=== PATIENT | male | born 1930 | race Caucasian/White ===

== ENCOUNTER 2017-08-28 13:07 | Inpatient (IN) | payer MEDICARE, OTHER ==
[2017-08-28] MEDS ORDERED: Acetaminophen 650 MG Suppository ONE ×2 (13:21→16:58)
[2017-08-28] MEDS ORDERED: SODIUM CHLORIDE IVPB SCH (13:45)
[2017-08-28] MEDS ORDERED: ADMIXTURE FEE IVPB SCH (13:45)
[2017-08-28] MEDS ORDERED: GENTAMICIN SULFATE IVPB SCH (13:45)
[2017-08-28] MEDS ORDERED: cefTRIAXone\\ROCEPHIN 2 GM in Sodium Chloride 0.9% 100 ML IVPB SCH (13:45)
--- NOTE | 2017-08-28 13:50 | RAD ---
CHEST 1 VIEW: HISTORY: Sepsis alert. COMPARISON: Radiograph 2004. FINDINGS: There are chronic parenchymal densities throughout the lungs. Heart size is enlarged. Dense calcifi cations of the aorta. There are calcifications of the right hemidiaphragm. No pneumothorax. No focal airspace consolidation. IMPRESSION: Likely chronic changes throughout the lungs. No focal airspace consolidation to suggest pneumonia. POS: [facility]
[2017-08-28 13:51] LABS: Hemoglobin 12.8 g/dL (14.0-18.0); Mean Corpuscular HGB CONC 32.5 g/dL (32.0-36.0); Mean Corpuscular Hemoglobin 32.3 pg (27.0-31.0); Mean Corpuscular Volume 99.6 fl (80.0-94.0); Mean Platelet Volume 6.5 fL (7.4-10.4); Platelet Count 177 thou/uL (130-400); RBC Distribution Width 13.7 % (11.5-14.5); Red Blood Cell (RBC) Count 3.95 mill/uL (4.70-6.10); White Blood Cell (WBC) Count 5.6 thou/uL (4.8-10.8)
[2017-08-28] MEDS ORDERED: Vancomycin HCl 1.5 GM in Sodium Chloride 0.9% 250 ML 300 ML IVPB SCH (14:00)
[2017-08-28 14:06] LABS: Bilirubin Moderate (Negative); Blood, Urine Large (Negative); Clarity CLOUDY (Clear); Glucose, Urine (Dipstick) Negative (Negative); Leukocyte Moderate (Negative); Nitrite Positive (Negative); Protein, Urine (Dipstick) > or equal to 300 mg/dL (Neg-Trace)
[2017-08-28 14:07] LABS: RBC/HPF GREATER THAN 50-TNTC HPF (0-3); Squamous Epithelial 0-3 HPF (0-3); WBC/HPF 0-3 HPF (0-3)
[2017-08-28 14:08] LABS: Bacteria/HPF Rare-Few HPF (None Seen); Hyaline Casts/LPF NONE SEEN LPF (0-3 Hyaline)
[2017-08-28 14:09] LABS: Band 2 % (5-11); Lymphocytes 3 % (21-51); MDiff Complete? YES; Monocytes 2 % (0-10); Neutrophil 93 % (42-75); PLT Morphology Comment Appears Adequate
[2017-08-28 14:12] LABS: ALT (SGPT) 35 U/L (8-55); AST (SGOT) 75 U/L (5-34); Albumin 3.2 g/dL (3.4-4.8); Alkaline Phosphatase 275 U/L (40-150); Anion Gap 15 mmol/L (10-20); BUN (Urea Nitrogen) 32 mg/dL (8.4-25.7); Bilirubin, Total 1.2 mg/dL (0.2-1.2); Calc. Creatinine Clearance 0 mL/min (70-130); Calcium 8.5 mg/dL (7.8-10.44); Carbon Dioxide 23 mmol/L (23-31); Chloride 102 mmol/L (98-107); Estimated GFR-MDRD 63; Globulin 3.1 g/dL (2.4-3.5); Glucose 98 mg/dL (83-110); Potassium 5.1 mmol/L (3.5-5.1); Protein, Total 6.3 g/dL (5.8-8.1); Sodium 135 mmol/L (136-145)
[2017-08-28 14:51] LABS: INR-International Normal Ratio 1.2; Prothrombin Time 15.7 SEC (12.0-14.7)
[2017-08-28] MEDS ORDERED: Norepinephrine 8 MG/0.9% NS 250 ML ONE (15:47)
[2017-08-28] MEDS ORDERED: Acetaminophen 650 MG Suppository PR PRN (16:10)
[2017-08-28] MEDS ORDERED: Acetaminophen 325 MG TAB PO PRN (16:10)
[2017-08-28] MEDS ORDERED: Sodium Chloride 0.9% 1,000 ML IV SCH (16:10)
[2017-08-28] MEDS ORDERED: CCU Electrolyte Replacement 1 EACH FS ONE (16:10)
--- NOTE | 2017-08-28 16:23 | RAD ---
CHEST ONE VIEW: History: Sepsis alert. Comparison: Radiograph same date. FINDINGS: A central venous catheter has been placed with tip projecting over the superior SVC. No pneumothorax. Remainder of the findings are similar. IMPRESSION: No complication after central venous catheter placement. POS: [facility]
[2017-08-28 16:29] LABS: CKMB 0.9 ng/mL (0-6.6)
[2017-08-28] MEDS ORDERED: Potassium Phosphate 15 MMOL in Sodium Chloride 0.9% 250 ML 250 ML IV PRN (16:39)
[2017-08-28] MEDS ORDERED: Potassium Chloride 40 MEQ in Sodium Chloride 0.9% 250 ML 250 ML IVPB PRN (16:39)
[2017-08-28] MEDS ORDERED: Potassium Chloride 20 MEQ TAB PO PRN (16:39)
[2017-08-28] MEDS ORDERED: Potassium Chloride 40 MEQ in Premix Bag 1 BAG IVPB PRN (16:39)
[2017-08-28] MEDS ORDERED: CCU ELECTROLYTE REPLACEMENT PROTOCOL FS PRN (16:39)
[2017-08-28] MEDS ORDERED: Magnesium Oxide 400 MG TAB PO PRN ×2 (16:39)
[2017-08-28] MEDS ORDERED: Potassium Phosphate 9 MMOL in Sodium Chloride 0.9% 100 ML IVPB PRN (16:39)
[2017-08-28] MEDS ORDERED: Magnesium 2 GM/NS 0.9% 100 ML 2 GM in Premix Bag 1 BAG IVPB PRN (16:39)
[2017-08-28] MEDS ORDERED: Potassium Phosphate 12 MMOL in Sodium Chloride 0.9% 250 ML 250 ML IV PRN (16:39)
[2017-08-28] MEDS ORDERED: Levofloxacin 750 mg/D5W 500 MG in Premix Bag 1 BAG IVPB SCH (17:00)
--- NOTE | 2017-08-28 18:22 | HP ---
REASON FOR ADMISSION: Septic shock, urinary tract infection, Wilkes trauma with hematuria. HISTORY OF PRESENT ILLNESS: Please note the patient was sent from [facility] for fever and unable to void. They tried to place Wilkes catheter at [facility] and were unable to. The patient was transferred here. He has blood in his Wilkes. The patient also had a temperature of 105 per ER physician. He has received nearly 3 liters of IV fluids and still has systolic pressures in the 80s. The patient is awake, but very lethargic. He does not recall why he is here in the hospital. Currently, the patient has some mild shortness of breath, but no chest pain or palpitation. He has chills and the patient also has a history of Parkinson's with tremors. PAST MEDICAL AND SURGICAL HISTORY: History of dementia, senior living resident who is essentially bed bound, occasionally goes in a wheelchair, hypertension, dyslipidemia, chronic atrial fibrillation, prior history of CABG, history of bladder cancer, depression, and osteoporosis. CURRENT MEDICATIONS: Per senior living records, the patient is on alendronate 35 mg p.o. once weekly on Tuesdays, alfuzosin extended release 10 mg p.o. daily for benign prostatic hyperplasia, amiodarone 200 mg p.o. daily, aspirin 81 mg daily, atorvastatin 40 mg daily, calcium with Vitamin D 1 tab once daily, carbidopa/levodopa 10/100 mg 1 tab p.o. 4 times daily, digoxin 0.125 mg p.o. daily, DuoNebs q.6 hourly p.r.n., ferrous sulfate 325 mg p.o. daily, folic acid 1 mg p.o. daily, Lasix 40 mg p.o. daily, levothyroxine 75 mcg p.o. daily, metoprolol extended release 50 mg half a tablet daily, Seroquel 12.5 mg p.o. q.a.m. and 50 mg p.o. at bedtime, spironolactone 25 mg p.o. daily, multivitamin 1 tab once daily. ALLERGIES: No known drug allergies. PERSONAL HISTORY: Does not abuse alcohol or drugs. He is currently a senior living resident at [facility]. FAMILY HISTORY: Cannot be obtained as patient is not cognitively intact at present and is lethargic. REVIEW OF SYSTEMS: Cannot be obtained as patient is septic and is lethargic. PHYSICAL EXAMINATION: GENERAL: The patient is an 86-year-old male who is currently in moderate distress from chills, rigors, and fever. VITAL SIGNS: Blood pressure 76/54 after 3 liters of IV fluid bolus, pulse 110 per minute, respiratory rate 36 per minute, temperature 105 degrees on arrival in the ER and currently 101, saturating 97% on 2 liters nasal cannula. NECK: Supple. No elevated JVD. HEENT: Extraocular muscles intact. Pupils reacting to light. Oral cavity, mucous membranes are dry. No exudates or congestion. CARDIOVASCULAR: S1, S2 heard. Irregular rhythm, tachycardic. RESPIRATORY: Air entry 1+ bilateral. Scattered rhonchi plus wheezes plus bilaterally. ABDOMEN: Soft. Bowel sounds heard. No tenderness, rigidity or guarding. EXTREMITIES: There is wasting of muscles of all 4 extremities, more so in the lower extremity. There is prior signs of vein harvesting done on right lower extremity. Peripheral pulses are 1+ in the upper extremities, barely palpable in the lower extremities. No obvious gangrene seen. CENTRAL NERVOUS SYSTEM: No gross focal deficits seen. The patient has severe tremors, which likely is worsened with rigors and fever at present with a temperature being 105, coming down to 101. PSYCHIATRIC: No obvious hallucinations or delusions at present. LABORATORY AND X-RAY FINDINGS: Chest x-ray done shows chronic changes in the lungs. No obvious infiltrates seen. EKG done shows atrial fibrillation at 106 beats per minute. There is Q-wave seen in lead II, III, AVF and V3, V4, V5. White count of 5.6, H&H 12 and 39, platelet count 177, MCV is 99 with 93% neutrophils, 2% bands. PT is 15.7, INR 1.2, serum bicarbonate is 23, BUN 32, creatinine 1.1. Lactic acid 3.5. Serum glucose 98, AST 75, ALT 35, alkaline phosphatase 275, total bilirubin 1.2, albumin is 3.2. UA shows signs of UTI plus hematuria. CLINICAL IMPRESSION AND PLAN: The patient will be admitted to ICU for septic shock with likely source being urinary tract. The patient has had history of recurrent UTIs in the past per son, whom I spoke to on the phone. Also, he is functionally very poor and is essentially wheelchair bound and has not ambulated in a long time per son. He will be on broad-spectrum antibiotics including vancomycin, cefepime and Levaquin for now. The patient has received 3 liters of bolus in the ER and is currently in mild to moderate respiratory distress with wheezing. In view of this, we will hold off on further boluses and keep him on normal saline at 80 mL per hour. If needed, he will be on Levophed for MAP of 50-60. We will consult Dr. Mark for Pulmonology and Dr. Samaniego for Urology. His overall prognosis is poor with multiple underlying medical issues and current septic shock. I have discussed code status with patient's son, Mr. Carmen Rosa (Jr. Rosa). The number to reach him is , alternate is [phone]. He wants everything done for now and if the patient were to worsen, he might change his mind if he thinks that his father is suffering. I have clearly indicated that there is every chance that patient might decompensate and might end up on the ventilator, and Mr. Rosa wants to go ahead if need be to aggressively pursue. If he ends up in a vegetative state he will go in for withdrawal of care. In view of this, we will admit him to ICU and get consultation with Dr. Mark for Pulmonology. We will also place him on digoxin IV for his atrial fibrillation, which might get worse with current septic shock and pressors. An echo with 2D Doppler for LV function will be obtained. His prior echo in 2006 and 2007 showed an EF of around 35% then. [facility]
[2017-08-28 18:37] VITALS: BMI 22.7
[2017-08-28] MEDS: Hydrocortisone Sod Succ/PF 100 mg/2 ml Vial IVP SCH (20:03)
[2017-08-28] MEDS: Carbidopa/Levodopa 10-100 mg Tablet PO SCH (20:49)
[2017-08-28] MEDS ORDERED: Cefepime 1 GM in Sodium Chloride 0.9% 100 ML IVPB SCH (21:00)
[2017-08-28] MEDS ORDERED: Vancomycin HCl 1 GM in Sodium Chloride 0.9% 250 ML 250 ML IVPB SCH (21:00)
[2017-08-28 21:11] LABS: Lactic Acid 6.6 mmol/L (0.5-2.2)
[2017-08-28] MEDS: Norepinephrine 8 MG/0.9% NS 250 ML IVPB SCH (22:16)
[2017-08-28] MEDS: Cefepime 1 GM, Admixture Fee 1 EACH in Sodium Chloride 0.9% 10 ML SLOW IVP SCH (23:15)
--- NOTE | 2017-08-28 23:30 | CON ---
DATE OF CONSULTATION: 08/28/2017 SERVICE: Pulmonary medicine. REASON FOR CONSULTATION: ICU patient. HISTORY OF PRESENT ILLNESS: Patient is an 86-year-old white male with past medical history significant for severe debility. He lives in a nursing facility. He has very poor quality of life based on what I am understanding. That being said, he presented to the hospital with marginal blood pressures. There is a concern for possible septic shock. Either way, he was hypotensive. He got 3 liters of fluid and broad-spectrum antibiotics in the emergency department. He was subsequently tucked in the ICU. Blood pressures were marginal, so he got 2 more liters of fluid. Ultimately, central line was initiated. He was started on pressors. CVP at that time was elevated. The patient cannot really provide much in the way of historical presentation. He currently denies any chest pain or shortness of breath. PAST MEDICAL HISTORY: 1. Dementia. 2. Debility with bedbound status. 3. Hypertension. 4. Dyslipidemia. 5. Permanent atrial fibrillation. 6. History of bladder cancer. 7. Major depressive disorder. 8. Osteoarthritis. PAST SURGICAL HISTORY: Coronary artery bypass graft. ALLERGIES: No known drug allergies. MEDICATIONS: List of his inpatient medications were reviewed. Multiple updates were made at this time. SOCIAL HISTORY: Negative for current alcohol, tobacco, or illicit drug use. He is currently a resident at [facility]. He is fully dependent on others for his activities of daily living. FAMILY HISTORY: Noncontributory. REVIEW OF SYSTEMS: This cannot be obtained as the patient has static encephalopathy. PHYSICAL EXAMINATION: VITAL SIGNS: Afebrile, pulse 90, blood pressure 90/48, respirations 26, saturation 100% on 2 liters nasal cannula. HEENT: Normocephalic, atraumatic. Sclerae white, conjunctivae pink. Oral and nasal mucosa is moist and without lesions. He demonstrates cachexia. LUNGS: Decent air entry. There is no crackles present. No wheezing or rhonchi appreciated. There is no prolonged expiratory phase. HEART: Normal rate. Regular. ABDOMEN: Soft. Scaphoid. Bowel sounds are present. There is no rebound. MUSCULOSKELETAL: No cyanosis or clubbing. There is skin tenting throughout. GENITOURINARY: Wilkes catheter in place with hematuria. NEUROLOGIC: Grossly nonfocal. He is moving all 4 extremities. He prefers to lye in his right side, curled up in position. LABORATORY DATA: WBC 5.6, hemoglobin 12.8, platelets 177,000. Neutrophil count is 93%. INR 1.2. Lactate is up trending to 6.1. Basic metabolic profile , and liver function studies are mostly unremarkable except for an AST of 75. Albumin 3.2. Cortisol level is adequate at 40.5. CK 42. Red blood cells are greater than 50. White blood cells in the urine are essentially unremarkable, though nitrites are positive, as his leukocyte esterase. IMAGING: Chest x-ray demonstrates left IJ central venous catheter terminates and probably a decent position. It is a little obscured by the overlying AICD leads that are in place. Previous sternotomy is evident. There is no acute consolidating changes that are identified. He has a rim of calcification over the dome of the right diaphragm, consistent with previous asbestos exposure. He also has pleural plaques are calcified in other locations. ASSESSMENT: 1. Septic shock, suspected. 2. Metabolic encephalopathy. 3. Urinary tract infection, suspected. 4. Heart disease, baseline unknown. PLAN: I will discontinue IV fluids and IV fluid boluses. His CVP is currently 17 and he does not require any additional fluids. We will initiate pressors. I will start him on stress dose of steroids. Empiric antibiotics will be continued. I will get an echocardiogram, so we can assess his left ventricular function. The patient is critically ill and there is a possibility that if things get worse, he will require intubation. I will get an arterial blood gas , so that we can identify his acid-base status. 70 minutes have been devoted to this patient in various activities. I personally reviewed all imaging studies and laboratory data noted within this document. For fifty percent of this time, I was interacting with the patient at the bedside or coordinating care with the care team. For the remainder of the time I was immediately available to the patient in the hospital unit. [facility]
--- NOTE | 2017-08-29 01:31 | CON ---
DATE OF CONSULTATION: 08/28/2017 REASON FOR CONSULTATION: UTI, Wilkes trauma with urosepsis. HISTORY OF PRESENT ILLNESS: The patient is an 86-year-old male, who was previously in a skilled nursing and was unable to urinte and an attempted catheter placement was either not able or not easy and he was transferred because he had a fever up to 105 by report. I was initially consulted for what was simply hematuria and Wilkes trauma only. I was able to get some history from the patient. It is difficult for him to communicate freely, but he was able to communicate adequately that he was treated at [facility] previously for bladder cancer, question of prostate cancer, and he has had multiple procedures on either the bladder and/or the prostate. With this information, I was able to look up that he had at least 2 TURBTs, the last of which was in 11/2015. I am not sure if he has had appropriate followup since then. He does report prior urinary retention at least 3 times, for which he has had to have a catheter before. He did not report that he had any pain or fullness to void at this time. PAST MEDICAL HISTORY: Significant for Parkinson with dementia and he is basically bedbound, hypertension, high cholesterol, atrial fibrillation, coronary artery disease, the above-mentioned bladder cancer, hypothyroid, osteoporosis, prior ventricular tachycardia. PAST SURGICAL HISTORY: Includes ORIF of the femur on the left in 1990, cardioversion 05/2015 with a defibrillator placement that same time along with catheterization, prior CABG x3 in 2007, tonsils, appendix, gallbladder. MEDICATIONS: His medications include alendronate, alfuzosin, amiodarone, aspirin 81 mg, atorvastatin, calcium and vitamin D, carbidopa levodopa, digoxin , nebulizers, metoprolol, Lasix, levothyroxine, Seroquel, spironolactone, other supplements. SOCIAL HISTORY: He has a [id number] history, having quit in 1985. He also used to snuff and chew tobacco, and he did quit that in 2016. He does not drink alcohol. REVIEW OF SYSTEMS: Revealed shortness of breath and chills, but no chest pain or palpitations. He has a resting tremor in the right hand. He denies ever having a colonoscopy. I am not sure if he has had screening for prostate cancer with PSAs. FAMILY HISTORY: Significant for mom dying at 80 and dad dying at 93. ALLERGIES: None. PHYSICAL EXAMINATION: GENERAL: He is alert and responds appropriately. He does have labored breathing with no dentition. VITAL SIGNS: Blood pressure with systolic in the 80s, although at the end of manipulation, it was up to 124/63 with the heart rates in the 80s-90s, saturating 100% on room air with a respiratory rate near 30. His pupils did not react normally and were quite small. HEART: Regular rate, but irregular rhythm. LUNGS: Clear to auscultation, but with poor inspiratory effort. ABDOMEN: Soft, nondistended. No palpable bladder. GENITOURINARY: His testes were descended bilaterally. His phallus was uncircumcised with the foreskin back, so I have reduced this. The Wilkes catheter did not appear to be in proper position based on how much it was hanging out. There was clear urine in the tubing, though by report, 200 have been already out since the nurse had him; however, I was unable to push this in even after deflating the balloon, so I removed it and there was a significant amount of blood at that time. I attempted to place an 18 coude, but was unsuccessful. So then, I had to scope the catheter in. He had no significant lower extremity edema. He was prepped and draped in as much sterile fashion as feasible in the bed, and then an 18-[place]er flexible cystoscope advanced to the prostate where trauma and inflamed tissue was noted where the balloon had been blown up. After some manipulation, I was able to find the proper pass and placed a wire into that area and follow the wire into his bladder, where there was not any significant clot noted. Leaving the wire in place, the scope was removed and then an 18- [place]er Wilkes catheter was placed over the wire without difficulty for initially clear urine that ended up becoming bloody, and drained approximately 80mL. At that point, I secured this appropriately. LABORATORY DATA: Normal CBC, slightly elevated PT, but an INR of 1.2 and PTT of 32. BUN and creatinine went to 32 and 1.10 with the prior at 1.23. Lactic acid was rising from 3.5 to 6.1. Troponin was elevated at 0.130. A urinalysis on this admission showed 0-3 wbc's, too numerous to count rbc's, and rare bacteria with 0-3 squamous. Urinalysis from 2 days prior (I am not sure how or when that was obtained) showed too numerous to count wbc's, too numerous to count rbc's, rare bacteria, and 0-3 squamous cells with the culture of gram- negative rusty is still pending. There is no upper tract imaging to review. ASSESSMENT AND PLAN: We have an 86-year-old gentleman with urinary retention and misplaced Wilkes with the Wilkes now in place draining adequately and the urine that was relatively unremarkable. So, presumably he was already on antibiotics from the prior culture that is still pending. He needs upper tract imaging to rule out stones or other obstruction, and I have ordered a plain CT scan at this time. He has already been placed on IV antibiotics to include cefepime and Levaquin. I would continue these until the culture from 2017 speciates and shows sensitivities. Continue the Wilkes catheter at this time. I would continue alfuzosin and add finasteride to help diminish his prostatic bleeding. I cannot tell that he saw either Dr. Barrios or Dr. Kaufman from [facility] previously, but if so, then they will follow up on him, otherwise I will do so. [facility] HOSPITALClement
[2017-08-29] MEDS: Hydrocortisone Sod Succ/PF 100 mg/2 ml Vial IVP SCH ×4 (01:54→20:56)
[2017-08-29] MEDS: Norepinephrine 8 MG/0.9% NS 250 ML IVPB SCH ×3 (01:54→16:22)
[2017-08-29 05:42] LABS: Anion Gap 18 mmol/L (10-20); BUN (Urea Nitrogen) 35 mg/dL (8.4-25.7); Calc. Creatinine Clearance 38 mL/min (70-130); Calcium 7.4 mg/dL (7.8-10.44); Carbon Dioxide 15 mmol/L (23-31); Chloride 109 mmol/L (98-107); Estimated GFR-MDRD 53; Glucose 104 mg/dL (83-110); Potassium 3.9 mmol/L (3.5-5.1); Sodium 138 mmol/L (136-145)
[2017-08-29 05:46] LABS: Hemoglobin 11.9 g/dL (14.0-18.0); Mean Corpuscular HGB CONC 30.9 g/dL (32.0-36.0); Mean Corpuscular Hemoglobin 32.2 pg (27.0-31.0); Platelet Count 202 thou/uL (130-400); RBC Distribution Width 14.1 % (11.5-14.5); White Blood Cell (WBC) Count 47.9 thou/uL (4.8-10.8)
[2017-08-29 05:47] LABS: Lactic Acid 7.2 mmol/L (0.5-2.2)
[2017-08-29 05:55] LABS: Band 31 % (5-11); Burr Cells SLIGHT = 2-5 cells (100X) (0-1/hpf); Dohle Bodies SLIGHT; MDiff Complete? YES; Metamyelocyte 4 % (0-0); Monocytes 1 % (0-10); Myelocyte 1 % (0-0); Neutrophil 63 % (42-75); PLT Morphology Comment Appears Adequate
[2017-08-29 06:50] LABS: Reflex for Review?? YES
[2017-08-29] MEDS: Carbidopa/Levodopa 10-100 mg Tablet PO SCH ×4 (08:23→20:56)
--- NOTE | 2017-08-29 08:32 | CT ---
PRELIMINARY REPORT/[facility]/EMERGENTY AFTER-HOURS PROCEDURE EXAM: CT Abdomen and Pelvis Without Intravenous Contrast EXAM DATE/TIME: Exam ordered 08/29/2017 12:43 AM CLINICAL HISTORY: 86 years old, male; Signs and symptoms; Other: Blood in urine; Patient HX: No previous exams; R/O obs tuction; Pt. Pulled out lechuga in intermediate; Urosepsis; Blood in urine since arrival. TECHNIQUE: Axial computed tomography images of the abdomen and pelvis without intravenous contrast. Coronal refo rmatted images were created and reviewed. COMPARISON: No relevant prior studies available. FINDINGS: Lung bases: There is calcification of the bilateral diaphragms. Pleural space: There are trace bilateral pleural effusions. ABDOMEN: Liver: Normal. Gallbladder and bile ducts: There has been a cholecystectomy. No ductal dilation. Pancreas: The pancreas appears normal. No ductal dilation. Spleen: The spleen is normal. Adrenals: The adrenal glands are normal. Kidneys and ureters: There is mild LEFT renal caliectasis without evidence of obstruction. Urine appe ars hyperdense possibly representing hematuria. The right kidney is normal. Stomach and bowel: The stomach is normal. The duodenum is unremarkable. No obstruction. No mucosal th ickening. Appendix: No appendix is specifically identified. There is no evidence of fluid collections or inflam matory stranding in the right lower quadrant. PELVIS: Bladder: The bladder is decompressed by a Lechuga catheter but is otherwise normal. There is a small am ount of intraluminal air consistent with instrumentation. No stones. Reproductive: Unremarkable as visualized. ABDOMEN and PELVIS: Intraperitoneal space: Normal. No free air. No significant fluid collection. Bones/joints: There are sternal wires consistent with previous sternotomy incision. The spine demonst rates moderate degenerative changes at multiple levels. Patient is post LEFT hip arthroplasty No acut e fracture. No dislocation. Soft tissues: Normal. Vasculature: There is severe atherosclerotic calcification of the coronary arteries. The vasculature demonstrates diffuse moderate atherosclerotic calcification. No abdominal aortic aneurysm. Lymph nodes: Normal. No enlarged lymph nodes. Tubes, lines and devices: A pacemaker device is present, and its leads are in appropriate position. IMPRESSION: There is mild LEFT renal caliectasis without evidence of obstruction. Urine appears hyperdense possib ly representing hematuria. Thank you for allowing us to participate in the care of your patient. Dictated and Authenticated by: Jacinto Pierre MD 08/29/2017 1:44 AM Central Time ([place] & [place]) FINAL REPORT CT ABDOMEN AND PELVIS WITHOUT CONTRAST: Multiple axial tomograms obtained through the abdomen and pelvis without Iv enhancement. There is a history of hematuria. Images through the lung bases reveal small right pleural effusion and possibly tiny left effusion. Liver, spleen, and pancreas are unremarkable. There is mild left hydronephrosis. No ureteral calculus identified. Bladder is contracted with a Fo hector catheter in place. The urine filling the left collecting systems is hyperdense as noted on the p reliminary report. Right kidney and right urinary tract appear unremarkable. Bowel loops unremarkable. The aorta is densely calcified. Mild left hydronephrosis. Etiology is not apparent on this study. I am in agreement with the prelim inary report. POS: [facility]
[2017-08-29] MEDS: Cefepime 1 GM, Admixture Fee 1 EACH in Sodium Chloride 0.9% 10 ML SLOW IVP SCH ×2 (08:54→20:56)
[2017-08-29] MEDS: Enoxaparin Sodium 40 MG/0.4 ML SYRINGE SC SCH (08:54)
[2017-08-29] MEDS ORDERED: Digoxin 0.5 MG/2 ML AMP SLOW IVP SCH (09:00)
[2017-08-29 09:24] LABS: Actual Bicarbonate (HCO3a) 12.5 mEq/L (22-26); CO2 Tension 25.2 mmHg (35.0-45.0); Hematocrit-ABG 37.8 % (42.0-52.0); Hemoglobin (Hb) 11.5 g/dL (14.0-18.0); O2 Tension (PaO2) 88.9 mmHg (80.0-100.0); pH, Arterial 7.32 (7.35-7.45)
[2017-08-29 09:25] LABS: Calcium, Ionized 1.1 mmol/L (1.12-1.30); Puncture Site RRA
--- NOTE | 2017-08-29 09:52 | PRG ---
DATE OF SERVICE: 08/29/2017 SERVICE: Pulmonary Medicine INTERVAL HISTORY: Today, the patient looks a little less toxic. His blood pressures are up nicer. His Levophed is down just a touch to 25 mcg. Otherwise, he is returning to his usual state of health . He denies any abdominal pain, or chest pain. PHYSICAL EXAMINATION: VITAL SIGNS: Afebrile, pulse 75, blood pressure is 123/53, respirations 30, saturation 100% on room air. GENERAL: The patient is awake, alert, in no apparent distress. LUNGS: Decent air entry. There are dependent crackles present. HEART: Normal rate, regular. ABDOMEN: Soft. It is tender to palpation in the hypogastric region, but there is no rebound or guar ding present. MUSCULOSKELETAL: No cyanosis or clubbing. There is trace pitting in the bilateral lower extremities . NEUROLOGIC: Grossly nonfocal. LABORATORY DATA: WBC 47.9, hemoglobin 11.9, platelets 202,000. Neutrophil count is 63%, but the ban d count has increased to 31%. INR 1.2. PH 7.32, pCO2 25, pO2 89. Basic metabolic profile is unrema rkable. Lactate continues to gently trend upward to 7.2. TSH 1.2. Urinalysis is essentially unrema rkable except for hematuria. That being said, it is growing E. coli at this point. Blood cultures x 2 remain unremarkable. IMAGING: CT of the abdomen and pelvis demonstrates no evidence of a stone. Mild left hydronephrosis is present. Bladder is contracted with a Wilkes in good position. Right kidney and right urinary tr act appear unremarkable. Mild left hydronephrosis is also evident without stone. ASSESSMENT: 1. Septic shock. 2. Urinary tract infection secondary to Escherichia coli. 3. Metabolic encephalopathy, clearing. 4. Heart disease, baseline unknown. PLAN: The IV fluids will stay off. Currently CVP is okay. We wean down Levophed as tolerated. We are going to continue our empiric antibiotics while we await culture results. I will repeat a lactat e tomorrow morning. Currently, we are meeting our goals of resuscitation. The patient is compensate d well for his degree of acidosis based on the ABG this morning. As such, we would do nothing but co ntinue supportive care. I will allow him to have clear liquids. We are not to advance his diet unti l he more robustly clears his acidosis.
[2017-08-29] MEDS ORDERED: Vancomycin HCl 1 GM in Premix Bag 1 BAG IVPB SCH ×2 (12:00→14:00)
--- NOTE | 2017-08-29 12:33 | PQF ---
DATE: 08-29-17 ATTN: DR. DAVID MARQUEZ Please exercise your independent, professional judgment in responding to the clarification form. Clinical indicators are provided on the bottom of this form for your review Please check appropriate box(s): [ ] UTI please specify if due to or related to (as applicable): [ ] Indwelling catheter [ ] Unable to determine etiology [ ] UTI not related to catheter [ x] Other diagnosis _e.coli bacteremia, sepsis, uti due to e.coli [ ] Unable to determine In addition, please specify: Present on Admission (POA): [ x ] Yes [ ] No [ ] Unable to determine For continuity of documentation, please document condition throughout progress notes and discharge summary. Thank You. CLINICAL INDICATORS - SIGNS / SYMPTOMS / LABS ER DOCUMENTATION: PRESENTS FOR EVALUATION OF JONES CATHETER, PULLED OUT ER DOCUMENTATION: PT CAME IN WITH 18 FR JONES FROM SENDING FACILITY, FILLED WITH GROSS BLOOD IN URINE. URINE SAMPLE AND URINE CX WILL BE COLLECTED FROM THIS JONES TUBING. ER DIAGNOSIS: SEPSIS, A FIB-RVR, HYPOTENSION,TACHYCARDIA, UTI H&P: UA SHOWS SIGNS OF UTI PLUS HEMATURIA, ADMITTED TO ICU FOR SEPTIC SHOCK WITH LIKELY SOURCE BEING URINARY TRACT. TEMP: (ER) 105.4 ( RECTAL), 103.5 ( RECTAL), 101.5 ( RECTAL), 102.0 ( RECTAL), RISK FACTORS: H&P: PT HAS HAD HX OF RECURRENT UTI'S IN THE PAST PER SON, PT FROM [place] ER DOCUMENTATION: PRESENTS FOR EVALUATION OF JONES CATHETER, PULLED OUT TREATMENT: (MAR) FAN BUTLER CONSULT NOTE : JONES CATHETER DID NOT APPEAR TO BE IN PROPER POSITION BASED ON HOW MUCH IT WAS HANGING OUT. 18 JONES FLEXIBLE CYSTOSCOPE ADVANCED TO THE PROSTATE WHERE TRAUMA AND INFLAMED TISSUE WAS NOTED WHERE THE BALLOON HAD BEEN BLOWN UP. (This form is maintained as a part of the permanent medical record) 2015 [employer] All Rights Reserved [email or web address] Office: [phone] AUDREY
[2017-08-29] MEDS: Vasopressin 40 UNIT, Admixture Fee 1 EACH in Sodium Chloride 0.9% 100 ML IV PRN (12:44)
--- NOTE | 2017-08-29 13:34 | PDOC.PN ---
- Subjective Encounter Start Date: 08/29/17 Encounter Start Time: 12:00 Subjective: awake, not oriented -: not in distress, appears better than yesterday, still has tremors -: no chills or fever now - Objective Resuscitation Status: Resuscitation Status FULL:Full Resuscitation MAR Reviewed: Yes Vital Signs & Weight: Vital Signs (12 hours) Temp Pulse 08/29/17 08:51 73 08/29/17 07:35 97.0 F L 08/29/17 04:00 98.2 F Most Recent Monitor Data Heart Rate from ECG 78 NIBP 106/39 NIBP BP-Mean 76 Respiration from ECG 32 SpO2 95 I&O: 08/28/17 08/29/17 08/30/17 06:59 06:59 06:59 Intake Total 5973 120 Output Total 630 200 Balance 5343 -80 Result Diagrams: 08/29/17 04:30 08/29/17 04:30 Phys Exam - Physical Examination HEENT: PERRLA, sclera anicteric Neck: no JVD, supple Respiratory: no wheezing, no rales Cardiovascular: RRR, no significant murmur Gastrointestinal: soft, non-tender, no distention, positive bowel sounds Musculoskeletal: no edema, pulses present Neurological: non-focal, moves all 4 limbs tremors++ Dx/Plan (1) E coli bacteremia Code(s): R78.81 - BACTEREMIA Status: Acute (2) Septic shock Code(s): A41.9 - SEPSIS, UNSPECIFIED ORGANISM; R65.21 - SEVERE SEPSIS WITH SEPTIC SHOCK Status: Acute (3) UTI (urinary tract infection) Status: Acute Qualifiers: Urinary tract infection type: acute cystitis Hematuria presence: with hematuria Qualified Code(s): N30.01 - Acute cystitis with hematuria (4) Parkinson disease Code(s): G20 - PARKINSON'S DISEASE Status: Chronic (5) RACHELLE (acute kidney injury) Code(s): N17.9 - ACUTE KIDNEY FAILURE, UNSPECIFIED Status: Acute (6) Metabolic acidosis Code(s): E87.2 - ACIDOSIS Status: Acute (7) Hematuria Code(s): R31.9 - HEMATURIA, UNSPECIFIED Status: Acute Qualifiers: Hematuria type: gross Qualified Code(s): R31.0 - Gross hematuria (8) Dementia Code(s): F03.90 - UNSPECIFIED DEMENTIA WITHOUT BEHAVIORAL DISTURBANCE Status: Chronic Qualifiers: Dementia type: unspecified type (9) H/O prostate cancer Code(s): Z85.46 - PERSONAL HISTORY OF MALIGNANT NEOPLASM OF PROSTATE Status: Chronic - Plan is on cefepime and levaquin -: await full culture results, prognosis guarded, family is aware -: liq diet, renal function holding up -: may rapidly taper and dc steroids if ok with pulm -: is on both levophed and vasopressin, levophed is getting tapered * . Review of Systems - Medications/Allergies Allergies/Adverse Reactions: Allergies Allergy/AdvReac Type Severity Reaction Status Date / Time No Known Allergies Allergy Unverified 08/28/17 20:35 Medications: Current Medications Acetaminophen (Tylenol) 650 mg PO Q4H PRN PRN Reason: Headache/Fever or Pain Acetaminophen (Tylenol) 650 mg SD Q4H PRN PRN Reason: Headache/Fever or Pain Carbidopa/Levodopa (Sinemet 10/100) 1 tab PO QID [facility] Last Admin: 08/29/17 13:27 Dose: Not Given Digoxin (Lanoxin) 0.25 mg SLOW IVP DAILY [facility] Last Admin: 08/29/17 08:51 Dose: 0.25 mg Enoxaparin Sodium (Lovenox) 40 mg SC 0900 [facility] Last Admin: 08/29/17 08:54 Dose: Not Given Hydrocortisone Sodium Succinate (Solu-Cortef) 50 mg IVP 0200,0800,1400,2000 [facility] Last Admin: 08/29/17 08:14 Dose: 50 mg Norepinephrine Bitartrate (Levophed) 250 mls @ 0 mls/hr IVPB INF JAGJTI; Titrate PRN Reason: Protocol Last Admin: 08/29/17 06:41 Dose: 250 mls Potassium Chloride 40 meq/ (Sodium Chloride) 270 mls @ 135 mls/hr IVPB ASDIR PRN PRN Reason: FOR SERUM K+ 2.5 - 3.5 Potassium Chloride 40 meq/ (Device) 100 mls @ 50 mls/hr IVPB ASDIR PRN PRN Reason: FOR SERUM K+ 2.5 - 3.5 Magnesium Sulfate 1 gm/ Sodium (Chloride) 102 mls @ 102 mls/hr IV PRN PRN PRN Reason: MAG LEVEL 1.4 - 2.0 Magnesium Sulfate 2 gm/ Device 100 mls @ 100 mls/hr IVPB ASDIR PRN PRN Reason: MAGNESIUM < 1.4 Potassium Phosphate 9 mmol/ (Sodium Chloride) 103 mls @ 25.75 mls/hr IVPB ASDIR PRN PRN Reason: Phosphate 1.0-1.8 Potassium Phosphate 12 mmol/ (Sodium Chloride) 254 mls @ 63.5 mls/hr IV ASDIR PRN PRN Reason: Serum phosphate 0.5-0.9 Potassium Phosphate 15 mmol/ (Sodium Chloride) 255 mls @ 63.75 mls/hr IV ASDIR PRN PRN Reason: Serum Phos < 0.5 Cefepime HCl 1 gm/Miscellaneous Medication 1 each/ Sodium Chloride 10 mls @ 120 mls/hr SLOW IVP BID [facility] Last Admin: 08/29/17 08:54 Dose: 10 mls Levofloxacin 500 mg/ Device 100 mls @ 100 mls/hr IVPB 2000 [facility] Last Admin: 08/28/17 20:04 Dose: 100 mls Vasopressin 40 unit/Miscellaneous Medication 1 each/ Sodium Chloride 102 mls @ 0 mls/hr IV INF PRN; Protocol; As Directed PRN Reason: TO KEEP MAP > 65 Last Admin: 08/29/17 12:44 Dose: 102 mls Magnesium Oxide (Magnesium Oxide) 400 mg PO BIDPRN PRN PRN Reason: FOR SERUM MAG 1.4 - 2.0 Magnesium Oxide (Magnesium Oxide) 800 mg PO PRN PRN PRN Reason: FOR SERUM MAG < 1.4 Miscellaneous Medication (Phos-Nak) 1 pkt PO TIDPRN PRN PRN Reason: FOR PHOS LEVEL 1.0 - 1.8 Miscellaneous Medication (Phos-Nak) 2 pkt PO TIDPRN PRN PRN Reason: FOR PHOS LEVEL 0.5 - 1.0 Ccu Electrolyte (Replacement Protocol) 0 each FS PRN PRN PRN Reason: FOR ELECTROLYTE REPLACEMENT Potassium Chloride (K-Dur) 40 meq PO ASDIR PRN PRN Reason: FOR SERUM K+ 2.5 - 3.5 Potassium Chloride (Klor-Con) 40 meq PER TUBE ASDIR PRN PRN Reason: FOR SERUM K+ 2.5-3.5
[2017-08-30] MEDS: Hydrocortisone Sod Succ/PF 100 mg/2 ml Vial IVP SCH ×2 (01:54→07:57)
[2017-08-30] MEDS: Vasopressin 40 UNIT, Admixture Fee 1 EACH in Sodium Chloride 0.9% 100 ML IV PRN (03:05)
[2017-08-30 04:51] LABS: Anion Gap 11 mmol/L (10-20); BUN (Urea Nitrogen) 46 mg/dL (8.4-25.7); Calc. Creatinine Clearance 43 mL/min (70-130); Calcium 7.6 mg/dL (7.8-10.44); Carbon Dioxide 21 mmol/L (23-31); Chloride 112 mmol/L (98-107); Estimated GFR-MDRD 61; Glucose 122 mg/dL (83-110); Magnesium 1.7 mg/dL (1.6-2.6); Potassium 4.8 mmol/L (3.5-5.1); Sodium 139 mmol/L (136-145)
[2017-08-30 05:30] LABS: Band 22 % (5-11); Hemoglobin 10.6 g/dL (14.0-18.0); Lymphocytes 2 % (21-51); MDiff Complete? YES; Mean Corpuscular HGB CONC 31.9 g/dL (32.0-36.0); Monocytes 6 % (0-10); Neutrophil 70 % (42-75); PLT Morphology Comment Appears Decreased; Platelet Count 107 thou/uL (130-400); White Blood Cell (WBC) Count 20.1 thou/uL (4.8-10.8)
--- NOTE | 2017-08-30 08:43 | PRG ---
DATE OF SERVICE: 08/30/2017 SERVICE: Pulmonary Medicine INTERVAL HISTORY: The patient is doing okay from a respiratory standpoint. He has been weaned off o f pressors. His blood pressure is more stable. He is much more alert this morning. He is not toxic appearing. PHYSICAL EXAMINATION: VITAL SIGNS: Afebrile, pulse 84, blood pressure 106/59, respirations 26, saturation 100% on room air . GENERAL: The patient is awake, alert, in no apparent distress. LUNGS: Excellent air entry. Dependent crackles are present. HEART: Normal rate, regular. ABDOMEN: Soft, nontender, nondistended. Bowel sounds are positive. MUSCULOSKELETAL: No cyanosis or clubbing. There is no pitting in the bilateral lower extremities. NEUROLOGIC: Grossly nonfocal. LABORATORY DATA: WBC 20.1 and down trending. Hemoglobin 10.6 and stable, platelets 107,000. Band c ount is 22. INR 1.2. Creatinine 1.14 and down trending, glucose 122. Anion gap has resolved at 11, and bicarbonate is improving to 21. Basic metabolic profile is otherwise unremarkable. E. coli is growing in the urine in 2 blood cultures. Sensitivities currently pending. IMAGING: Echocardiogram demonstrates 50-55% ejection fraction. Left atrium is mildly dilated. ASSESSMENT: 1. Septic shock, resolved. 2. Urinary tract infection secondary to Escherichia coli. 3. Metabolic encephalopathy, resolved to baseline. DISCUSSION AND PLAN: We will continue our empiric antibiotics, but tailor our therapy to our sensiti vities. At this point, the patient's blood pressure is good. He is clearing his end-organ damage. As such, he can be transitioned to the medical unit. Pulmonary will continue to follow while he mario ins in house. I will start up very slow half normal saline moving forward. We will advance his diet .
[2017-08-30] MEDS ORDERED: Furosemide 20 MG TAB PO SCH (08:45)
[2017-08-30] MEDS: Cefepime 1 GM, Admixture Fee 1 EACH in Sodium Chloride 0.9% 10 ML SLOW IVP SCH ×2 (09:20→21:44)
[2017-08-30] MEDS: Enoxaparin Sodium 40 MG/0.4 ML SYRINGE SC SCH (09:20)
[2017-08-30] MEDS: Digoxin 0.25 MG TAB PO SCH (09:22)
[2017-08-30] MEDS: Carbidopa/Levodopa 10-100 mg Tablet PO SCH ×4 (09:22→21:44)
[2017-08-30] MEDS: Finasteride 5 MG TAB PO SCH (09:23)
--- NOTE | 2017-08-30 12:56 | PDOC.PN ---
- Subjective Encounter Start Date: 08/30/17 Encounter Start Time: 12:30 Subjective: is awake, not oriented -: not in distress - Objective Resuscitation Status: Resuscitation Status FULL:Full Resuscitation MAR Reviewed: Yes Vital Signs & Weight: Vital Signs (12 hours) Temp Pulse Resp Pulse Ox 08/30/17 09:22 77 08/30/17 08:00 98.4 F 74 23 H 100 08/30/17 04:00 97.7 F Weight Admit Weight 145 lb 4.554 oz Weight 145 lb 4.554 oz Most Recent Monitor Data Heart Rate from ECG 70 NIBP 122/57 NIBP BP-Mean 74 Respiration from ECG 29 SpO2 100 I&O: 08/29/17 08/30/17 08/31/17 06:59 06:59 06:59 Intake Total 5973 1664 180 Output Total 630 931 75 Balance 5343 733 105 Result Diagrams: 08/30/17 04:00 08/30/17 04:00 Phys Exam - Physical Examination HEENT: PERRLA, sclera anicteric Neck: no JVD, supple Respiratory: no wheezing, no rales Cardiovascular: RRR, no significant murmur Gastrointestinal: soft, non-tender, positive bowel sounds Musculoskeletal: no edema, pulses present Neurological: non-focal, moves all 4 limbs Dx/Plan (1) E coli bacteremia Code(s): R78.81 - BACTEREMIA Status: Acute (2) Septic shock Code(s): A41.9 - SEPSIS, UNSPECIFIED ORGANISM; R65.21 - SEVERE SEPSIS WITH SEPTIC SHOCK Status: Resolved (3) UTI (urinary tract infection) Status: Acute Qualifiers: Urinary tract infection type: acute cystitis Hematuria presence: with hematuria Qualified Code(s): N30.01 - Acute cystitis with hematuria (4) Parkinson disease Code(s): G20 - PARKINSON'S DISEASE Status: Chronic (5) RACHELLE (acute kidney injury) Code(s): N17.9 - ACUTE KIDNEY FAILURE, UNSPECIFIED Status: Acute (6) Metabolic acidosis Code(s): E87.2 - ACIDOSIS Status: Acute Comment: resolving (7) Hematuria Code(s): R31.9 - HEMATURIA, UNSPECIFIED Status: Acute Qualifiers: Hematuria type: gross Qualified Code(s): R31.0 - Gross hematuria Comment: resolving (8) Dementia Code(s): F03.90 - UNSPECIFIED DEMENTIA WITHOUT BEHAVIORAL DISTURBANCE Status: Chronic Qualifiers: Dementia type: unspecified type (9) H/O prostate cancer Code(s): Z85.46 - PERSONAL HISTORY OF MALIGNANT NEOPLASM OF PROSTATE Status: Chronic - Plan is on cefepime, levaquin -: off steroids (stress dose due to severe hypotension and septic shock) -: is on alfuzosin and finasteride -: continue dig for afib -: await culture results, PT to mobilize as tolerated, fall precautions * . Review of Systems - Medications/Allergies Allergies/Adverse Reactions: Allergies Allergy/AdvReac Type Severity Reaction Status Date / Time No Known Allergies Allergy Unverified 08/28/17 20:35 Medications: Current Medications Acetaminophen (Tylenol) 650 mg PO Q4H PRN PRN Reason: Headache/Fever or Pain Acetaminophen (Tylenol) 650 mg ME Q4H PRN PRN Reason: Headache/Fever or Pain Alfuzosin HCl (Uroxatral) 10 mg PO QAM-[facility] Carbidopa/Levodopa (Sinemet 10/100) 1 tab PO QID [facility] Last Admin: 08/30/17 09:22 Dose: 1 tab Digoxin (Lanoxin) 0.25 mg PO DAILY [facility] Last Admin: 08/30/17 09:22 Dose: 0.25 mg Enoxaparin Sodium (Lovenox) 40 mg SC 0900 [facility] Last Admin: 08/30/17 09:20 Dose: 40 mg Finasteride (Proscar) 5 mg PO DAILY [facility] Last Admin: 08/30/17 09:23 Dose: 5 mg Cefepime HCl 1 gm/Miscellaneous Medication 1 each/ Sodium Chloride 10 mls @ 120 mls/hr SLOW IVP BID [facility] Last Admin: 08/30/17 09:20 Dose: 10 mls Levofloxacin 500 mg/ Device 100 mls @ 100 mls/hr IVPB 2000 [facility] Last Admin: 08/29/17 20:56 Dose: 100 mls
[2017-08-31 04:00] LABS: Anion Gap 12 mmol/L (10-20); BUN (Urea Nitrogen) 48 mg/dL (8.4-25.7); Calc. Creatinine Clearance 46 mL/min (70-130); Calcium 7.8 mg/dL (7.8-10.44); Carbon Dioxide 22 mmol/L (23-31); Chloride 113 mmol/L (98-107); Estimated GFR-MDRD 66; Glucose 83 mg/dL (83-110); Potassium 4.6 mmol/L (3.5-5.1); Sodium 142 mmol/L (136-145)
[2017-08-31 04:12] LABS: Band 12 % (5-11); Hemoglobin 10.9 g/dL (14.0-18.0); Lymphocytes 3 % (21-51); MDiff Complete? YES; Mean Corpuscular HGB CONC 33.2 g/dL (32.0-36.0); Mean Corpuscular Hemoglobin 33.2 pg (27.0-31.0); Mean Corpuscular Volume 99.9 fl (80.0-94.0); Mean Platelet Volume 7.3 fL (7.4-10.4); Monocytes 2 % (0-10); Neutrophil 83 % (42-75); PLT Morphology Comment Appears Decreased; Platelet Count 108 thou/uL (130-400); Red Blood Cell (RBC) Count 3.28 mill/uL (4.70-6.10); White Blood Cell (WBC) Count 16.6 thou/uL (4.8-10.8)
[2017-08-31] MEDS: Alfuzosin 10 MG TABDR...ER PO SCH (08:42)
[2017-08-31] MEDS: Digoxin 0.25 MG TAB PO SCH (08:43)
[2017-08-31] MEDS: Carbidopa/Levodopa 10-100 mg Tablet PO SCH ×4 (08:43→20:38)
[2017-08-31] MEDS: Enoxaparin Sodium 40 MG/0.4 ML SYRINGE SC SCH (08:48)
[2017-08-31] MEDS: Finasteride 5 MG TAB PO SCH (08:49)
--- NOTE | 2017-08-31 09:38 | PRG ---
DATE OF SERVICE: 08/30/2017 SUBJECTIVE: The patient has no significant events in the past 24 hours. His Wilkes catheter continue s to be hematuric with the nurse irrigating as needed. The patient has no complaints. His is a t the bedside and I reviewed his prior history with her as well and determined that he has had a Fole y catheter indwelling since sometime last year and failed voiding trials, although he was not on Serious Businesss upon admission. I am not sure if he has been treated long-term for BPH, but it does not sound like he has had a prostate procedure. She reports he had cystoscopy in May or June of this y ear, so that is the case does not warrant a repeat cystoscopy for a year. OBJECTIVE: VITAL SIGNS: He has remained afebrile with vital signs stable, satting 100% on room air. GENERAL: He is alert, but somewhat confused. He has had 900 out in the past 24 hours. GENITOURINARY: On exam, he now has significant penile and scrotal edema that was not present before and is basically squashing his genitalia between his legs. The catheter was secured appropriately. LABORATORY DATA: His white count continues to come down to 20. His creatinine is now 1.14. His uri ne and blood cultures show E. coli with sensitivities still pending. ASSESSMENT AND PLAN: We have an 86-year-old gentleman, status post urethral trauma from Wilkes remova l and improper reinsertion, now with catheter in the appropriate spot. He also has a history of blad nirav cancer with updated surveillance. We would continue his alfuzosin, which he was on and I have ad ded finasteride, he should continue this indefinitely. However, I would not attempt a voiding trial anytime soon as he has had such concern regarding retention and that now appears chronic, either way the catheter will need to remain in place at least 1 week for attempt any further manipulation based on the previous trauma. He also has significant penile and scrotal edema now that simply needs to be monitored and elevated at all times, but it is otherwise not concerning. I will continue antibiotic s for 3 to 4 weeks based on the cultures and sensitivities and he can either follow up with me as an outpatient or continue to see his [place] urologist. I will continue to follow along for now.
--- NOTE | 2017-08-31 11:41 | PDOC.PN ---
- Subjective Encounter Start Date: 08/31/17 Encounter Start Time: 08:15 Subjective: not oriented, not in distress - Objective Resuscitation Status: Resuscitation Status FULL:Full Resuscitation MAR Reviewed: Yes Vital Signs & Weight: Vital Signs (12 hours) Temp Pulse Resp BP Pulse Ox 08/31/17 08:43 71 08/31/17 08:00 97.6 F 71 24 H 110/63 95 08/31/17 03:50 97.7 F 71 18 127/72 95 Weight Admit Weight 145 lb 4.554 oz Weight 145 lb 4.554 oz Most Recent Monitor Data Heart Rate from ECG 70 NIBP 122/57 NIBP BP-Mean 74 Respiration from ECG 29 SpO2 100 I&O: 08/30/17 08/31/17 09/01/17 06:59 06:59 06:59 Intake Total 1664 950 Output Total 931 775 Balance 733 175 Result Diagrams: 08/31/17 03:06 08/31/17 03:06 Phys Exam - Physical Examination HEENT: PERRLA, sclera anicteric dry mucosa Neck: no nodes, no JVD Respiratory: no wheezing, no rales Cardiovascular: RRR, no significant murmur Gastrointestinal: soft, non-tender, positive bowel sounds Musculoskeletal: no edema, pulses present Neurological: non-focal, moves all 4 limbs Dx/Plan (1) E coli bacteremia Code(s): R78.81 - BACTEREMIA Status: Acute (2) Septic shock Code(s): A41.9 - SEPSIS, UNSPECIFIED ORGANISM; R65.21 - SEVERE SEPSIS WITH SEPTIC SHOCK Status: Resolved (3) UTI (urinary tract infection) Status: Acute Qualifiers: Urinary tract infection type: acute cystitis Hematuria presence: with hematuria Qualified Code(s): N30.01 - Acute cystitis with hematuria (4) Parkinson disease Code(s): G20 - PARKINSON'S DISEASE Status: Chronic (5) RACHELLE (acute kidney injury) Code(s): N17.9 - ACUTE KIDNEY FAILURE, UNSPECIFIED Status: Acute (6) Metabolic acidosis Code(s): E87.2 - ACIDOSIS Status: Acute Comment: resolving (7) Hematuria Code(s): R31.9 - HEMATURIA, UNSPECIFIED Status: Acute Qualifiers: Hematuria type: gross Qualified Code(s): R31.0 - Gross hematuria Comment: resolving (8) Dementia Code(s): F03.90 - UNSPECIFIED DEMENTIA WITHOUT BEHAVIORAL DISTURBANCE Status: Chronic Qualifiers: Dementia type: unspecified type (9) H/O prostate cancer Code(s): Z85.46 - PERSONAL HISTORY OF MALIGNANT NEOPLASM OF PROSTATE Status: Chronic - Plan is on levaquin -: will need antibiotics for atleast 2 weeks -: on alfuzosin, finasteride for bph/prostate ca -: digoxing, sinemet -: wbc down to 16k, likely stress steroid effect * . dc plan in 24hrs. Encourage po intake Has dementia and family wants full code for now. Review of Systems - Medications/Allergies Allergies/Adverse Reactions: Allergies Allergy/AdvReac Type Severity Reaction Status Date / Time No Known Allergies Allergy Unverified 08/28/17 20:35 Medications: Current Medications Acetaminophen (Tylenol) 650 mg PO Q4H PRN PRN Reason: Headache/Fever or Pain Acetaminophen (Tylenol) 650 mg SD Q4H PRN PRN Reason: Headache/Fever or Pain Alfuzosin HCl (Uroxatral) 10 mg PO QAM-[facility] Last Admin: 08/31/17 08:42 Dose: 10 mg Carbidopa/Levodopa (Sinemet 10/100) 1 tab PO QID [facility] Last Admin: 08/31/17 08:43 Dose: 1 tab Digoxin (Lanoxin) 0.25 mg PO DAILY [facility] Last Admin: 08/31/17 08:43 Dose: 0.25 mg Enoxaparin Sodium (Lovenox) 40 mg SC 0900 [facility] Last Admin: 08/31/17 08:48 Dose: 40 mg Finasteride (Proscar) 5 mg PO DAILY [facility] Last Admin: 08/31/17 08:49 Dose: 5 mg Levofloxacin 500 mg/ Device 100 mls @ 100 mls/hr IVPB 1999 [facility] Last Admin: 08/30/17 19:00 Dose: 100 mls
--- NOTE | 2017-08-31 14:25 | PRG ---
DATE OF SERVICE: 08/31/2017 SERVICE: Pulmonary Medicine. INTERVAL HISTORY: The patient is doing fine from a respiratory standpoint. He is breathing comforta juancarlos. He has no chest pain or shortness of breath. He is awake and alert. He is feeding himself arvin akfast. PHYSICAL EXAMINATION: VITAL SIGNS: Afebrile, pulse 71, blood pressure 110/63, respirations 24, saturation 95% on room air. GENERAL: The patient is awake, alert, in no apparent distress. LUNGS: Decent air entry. There are no crackles or rhonchi present. HEART: Normal rate, regular. ABDOMEN: Soft, nontender, nondistended. Bowel sounds are positive. MUSCULOSKELETAL: No cyanosis or clubbing. There is no pitting in the bilateral lower extremities. He no longer has skin tenting. GENITOURINARY: No Wilkes. NEUROLOGIC: Grossly nonfocal. LABORATORY DATA: WBC 16.6, hemoglobin 10.9 and stable, platelets 108,000. INR 1.2. Creatinine 1.07 , BUN 48, bicarbonate 22. Basic metabolic profile is essentially unremarkable otherwise. His potass ium is 4.6 and roughly stable. E. coli is growing in 2 out of 2 blood cultures as well as a urine cu lture. This is a pansensitive organism. ASSESSMENT: 1. Septic shock, resolved. 2. Urinary tract infection secondary to Escherichia coli, pansensitive. 3. Metabolic encephalopathy, resolved to baseline, DISCUSSION AND PLAN: IJ central venous catheter will be removed today. We will drop her antibiotics to treat our culprit organism. We were fortunate that is pansensitive bacteria. At this point, he has no further requirements for inpatient Pulmonary or Critical Care opinion and I will sign off. Pl ease call with additional questions or concerns.
[2017-09-01] MEDS: Carbidopa/Levodopa 10-100 mg Tablet PO SCH ×4 (09:43→21:30)
[2017-09-01] MEDS: Alfuzosin 10 MG TABDR...ER PO SCH (09:43)
[2017-09-01] MEDS: Finasteride 5 MG TAB PO SCH (09:44)
[2017-09-01] MEDS: Enoxaparin Sodium 40 MG/0.4 ML SYRINGE SC SCH (09:46)
[2017-09-01] MEDS: Digoxin 0.25 MG TAB PO SCH (09:47)
[2017-09-01] MEDS ORDERED: Furosemide 20 MG/2 ML VIAL SLOW IVP SCH (10:30)
--- NOTE | 2017-09-01 13:04 | PRG ---
DATE OF SERVICE: 09/01/2017 SUBJECTIVE: The patient was admitted with urosepsis after Wilkes, trauma and required cystoscopy for catheter placement, but is otherwise improved since he has had adequate drainage and appropriate anti biotics. He has no specific complaints. His vitals have been stable. He has 675 out in the past shift. He is comfortable in the bed. His c atheter is draining yellow urine. His scrotal and penile edema has improved and there is no tenderne ss. Balloon get appears stuck in the prostate again or at least pulled down to that, so this was pus hed back in. LABORATORY DATA: His white count continues to come down at 16.6. His creatinine is 1.07 and his cul tures for both blood and urine show E. coli for which he is on appropriate antibiotics. 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 He should continue on finasteride indefinitely with an indwelling and I would keep it in a month be fore either changing it or trying for a voiding trial. [facility], so if he wants to continue with them again, otherwise, he can continue with me as an outpatient a nd we can attempt voiding trials versus discussed definitive therapy to try to get him voiding.
--- NOTE | 2017-09-01 13:24 | PDOC.PN ---
- Subjective Encounter Start Date: 09/01/17 Encounter Start Time: 09:00 Subjective: awake, has husky voice and sob -: communicates well, knows his 's name and he is in hosp -: eating well per staff - Objective Resuscitation Status: Resuscitation Status FULL:Full Resuscitation MAR Reviewed: Yes Vital Signs & Weight: Vital Signs (12 hours) Temp Pulse Resp BP Pulse Ox 09/01/17 11:05 98 F 62 30 H 126/71 98 09/01/17 09:47 63 09/01/17 07:15 98.1 F 60 24 H 123/71 94 L 09/01/17 03:44 97.7 F 60 19 105/52 L 95 Weight Admit Weight 145 lb 4.554 oz Weight 145 lb 4.554 oz Most Recent Monitor Data Heart Rate from ECG 70 NIBP 122/57 NIBP BP-Mean 74 Respiration from ECG 29 SpO2 100 I&O: 08/31/17 09/01/17 09/02/17 06:59 06:59 06:59 Intake Total 950 480 Output Total 775 675 Balance 175 -195 Result Diagrams: 08/31/17 03:06 08/31/17 03:06 Phys Exam - Physical Examination HEENT: PERRLA, sclera anicteric very dry oral mucosa Neck: no JVD, supple Respiratory: no wheezing, no rales rhonchi+ Cardiovascular: RRR, no significant murmur Gastrointestinal: soft, non-tender, positive bowel sounds Musculoskeletal: no edema, pulses present Neurological: non-focal, moves all 4 limbs Dx/Plan (1) E coli bacteremia Code(s): R78.81 - BACTEREMIA Status: Acute (2) Septic shock Code(s): A41.9 - SEPSIS, UNSPECIFIED ORGANISM; R65.21 - SEVERE SEPSIS WITH SEPTIC SHOCK Status: Resolved (3) UTI (urinary tract infection) Status: Acute Qualifiers: Urinary tract infection type: acute cystitis Hematuria presence: with hematuria Qualified Code(s): N30.01 - Acute cystitis with hematuria (4) Parkinson disease Code(s): G20 - PARKINSON'S DISEASE Status: Chronic (5) RACHELLE (acute kidney injury) Code(s): N17.9 - ACUTE KIDNEY FAILURE, UNSPECIFIED Status: Resolved (6) Metabolic acidosis Code(s): E87.2 - ACIDOSIS Status: Resolved (7) Hematuria Code(s): R31.9 - HEMATURIA, UNSPECIFIED Status: Acute Qualifiers: Hematuria type: gross Qualified Code(s): R31.0 - Gross hematuria Comment: resolving (8) Dementia Code(s): F03.90 - UNSPECIFIED DEMENTIA WITHOUT BEHAVIORAL DISTURBANCE Status: Chronic Qualifiers: Dementia type: unspecified type (9) H/O prostate cancer Code(s): Z85.46 - PERSONAL HISTORY OF MALIGNANT NEOPLASM OF PROSTATE Status: Chronic - Plan repeat cxr, one dose lasix -: if he gets comfortable breathing by this afternoon may dc back to snf -: is on levaquin -: freq oral hygeine to prevent dryness of mucosa/inf -: voice is husky due to above * . continue dig, sinemet, finasteride and alfuzosin. DC with lechuga to [facility] when stable, to f/u with /[place] urologist in 4 weeks for voiding trial and removal. Review of Systems - Medications/Allergies Allergies/Adverse Reactions: Allergies Allergy/AdvReac Type Severity Reaction Status Date / Time No Known Allergies Allergy Unverified 08/28/17 20:35 Medications: Current Medications Acetaminophen (Tylenol) 650 mg PO Q4H PRN PRN Reason: Headache/Fever or Pain Acetaminophen (Tylenol) 650 mg NE Q4H PRN PRN Reason: Headache/Fever or Pain Alfuzosin HCl (Uroxatral) 10 mg PO QAM-WM [facility] Last Admin: 09/01/17 09:43 Dose: 10 mg Carbidopa/Levodopa (Sinemet 10/100) 1 tab PO QID [facility] Last Admin: 09/01/17 09:43 Dose: 1 tab Digoxin (Lanoxin) 0.25 mg PO DAILY [facility] Last Admin: 09/01/17 09:47 Dose: 0.25 mg Enoxaparin Sodium (Lovenox) 40 mg SC 0900 [facility] Last Admin: 09/01/17 09:46 Dose: 40 mg Finasteride (Proscar) 5 mg PO DAILY [facility] Last Admin: 09/01/17 09:44 Dose: 5 mg Levofloxacin (Levaquin) 500 mg PO 2100 [facility] Last Admin: 08/31/17 20:39 Dose: 500 mg
--- NOTE | 2017-09-01 14:52 | RAD ---
PORTABLE AP CHEST: Date: 09/01/17 HISTORY: Shortness of breath, question volume overload versus infiltrate. COMPARISON: 08/28/17. FINDINGS: Postsurgical changes related to CABG are again noted. Vascular calcifications seen in an ectatic thor acic aorta. Cardiac silhouette is magnified by projection, but does appear mildly enlarged. A dual le ad left subclavian AICD device remains in place. There is blunting of the lateral costophrenic angles bilaterally suggesting small bilateral pleural effusions. Again noted are pleural based plaques seen bilaterally, especially along the right hemidiaphragm, as well as at the lateral aspect of the left upper and mid lung zones. Surgical clips overlie the right upper quadrant. IMPRESSION: 1. Small bilateral pleural effusions and passive atelectasis. 2. Cardiomegaly without overt CHF. 3. Calcified pleural based plaques bilaterally, which can be seen with prior asbestos exposure. POS: GURINDER
[2017-09-02] MEDS: Budesonide 0.5 MG/2 ML NEB INH SCH ×2 (08:07→19:29)
[2017-09-02] MEDS: Furosemide 40 MG TAB PO SCH ×2 (08:29→13:27)
[2017-09-02] MEDS: Carbidopa/Levodopa 10-100 mg Tablet PO SCH ×3 (08:29→17:16)
[2017-09-02] MEDS: Digoxin 0.25 MG TAB PO SCH (08:29)
[2017-09-02] MEDS: Finasteride 5 MG TAB PO SCH (08:29)
[2017-09-02] MEDS: Alfuzosin 10 MG TABDR...ER PO SCH (08:31)
[2017-09-02] MEDS: Enoxaparin Sodium 40 MG/0.4 ML SYRINGE SC SCH (08:31)
--- NOTE | 2017-09-02 12:46 | PRG ---
DATE OF SERVICE: 09/02/2017 SUBJECTIVE: The patient is sitting in a chair next to the bed comfortably, watching TV. He has no complaints. OBJECTIVE: VITAL SIGNS: He has been afebrile with vital stable and his catheter has been draining without difficulty. Currently the urine is light yellow. ASSESSMENT AND PLAN: We have an 86-year-old gentleman admitted with urosepsis after Wilkes trauma, requiring cystoscopic placement of a catheter. He has long- term retention with a history of bladder cancer already being followed by an outside urologist. I reviewed with the nurse to continue finasteride at this time with both the chance of increasing his ability to void on his own without a catheter as well as decreasing bleeding from the prostate even if he does need an indwelling catheter long-term. If he would like to follow up with me, then I will set him up for voiding trial and start tamsulosin closer to that time. I'd also evaluate him for a possible prostate procedure if he is still unable to void. Given his history of bladder cancer, he also needs cystoscopy annually and based on what the communicated to me, this has already been done earlier this year. They can continue to [facility] or they can follow up with me as an outpatient; I will leave that up to his . The catheter can be changed at a month and should not require anything special at that time. Again, continue the finasteride indefinitely 5 mg daily, and call for further issues. AUDREY
[2017-09-02 15:11] VITALS: BP 96/67; TEMP 97.8
--- NOTE | 2017-09-02 20:49 | DIS ---
DATE OF ADMISSION: 08/28/2017 DATE OF DISCHARGE: 09/02/2017 DISCHARGE DIAGNOSES: 1. Status post septic shock secondary to #2. 2. Escherichia coli bacteremia from urinary tract source, resolving. 3. Acute cystitis with hematuria, improved. 4. Acute kidney injury, resolved. 5. Metabolic acidosis, resolved. 6. Gross hematuria secondary to traumatic Wilkes injury, resolved. 7. Dementia, unspecified type, chronic. CONSULTATIONS: Dr. Samaniego with Urology Service and Dr. Mark with Critical Care Service. PERTINENT LABORATORY AND X-RAY FINDINGS: CO2 ranged between 15-23, creatinine ranged between 1.07 to 1.29. Lactic acid level ranged between 3.5 to 7.2. Phosphorus 3, magnesium 1.7, TSH 1.26. Cortiso l level is 40.5. CBC showed a white blood cell count ranged between 5.6 to 47.9, hemoglobin ranged b etween 10.6 to 12.8. Blood cultures x2 from 08/28/2017 showed E. coli species. Urine culture dated 08/28/2017 positive for greater than 100,000 colonies of E. coli. Portable chest x-ray dated 08/28/2017 showed central venous catheter with the tip projecting over the superior vena cava. No pneumothorax identified. CT of the abdomen and pelvis dated 08/28/2017 show ed mild left hydronephrosis. Bladder is contracted with Wilkes catheter in place. Mild left hydronep hrosis. 2D transthoracic echocardiogram dated 08/29/2017 showed ejection fraction of 50%-55%, mild l eft atrial enlargement, [id number] mitral valve regurgitation. HOSPITAL COURSE: The patient was initially admitted to the Critical Care Unit after presenting with septic shock and suspected urinary tract infection with Wilkes trauma and gross hematuria. The patien t was initially admitted from [facility] with fever up to 105 degrees Fahrenheit recei ving 3 liters of intravenous normal saline and placed on septic protocol. The patient received broad -spectrum IV antibiotic coverage with cefepime and Levaquin pending final identification of organisms in blood and urine cultures. The patient was evaluated by the Critical Care Unit due to the patient 's admission to the Critical Care Unit. The patient underwent a left internal jugular central venous catheter placement without complication. The patient slowly clinically improved with aggressive sup portive measures, IV antibiotics, and IV fluid supplementation. The patient was also evaluated by [facility] due to gross hematuria and indwelling Wilkes catheter. The patient received bladder irrigation and discontinuation of all anticoagulants with clearing of the urine samples by the time of discharge. The patient was also initiated on finasteride with plans to continue indefinitely. [facility] patient overall clinically stabilized with IV fluids and IV antibiotic supplementation transitionin g to surgical floor for observation. The patient overall clinically stabilized after initial resusci tation in the emergency department. Due to patient's improved clinical condition and clearing of uri ne sample after urethral trauma, the patient was deemed an appropriate candidate to return to [facility] in [facility], where the patient is a resident. On the day of discharge, I examined t he patient and discussed lab findings and followup instructions. The patient verbalized joann martinez and is ready for discharge on 09/02/2017. DISCHARGE MEDICATIONS: 1. Alendronate 35 mg p.o. once a week. 2. Uroxatral 10 mg p.o. q.a.m. 3. Alfuzosin ER 10 mg p.o. daily. 4. Amiodarone 200 mg 1 tab p.o. daily. 5. Enteric-coated aspirin 81 mg p.o. daily, may resume on 09/07/2017. 6. Lipitor 40 mg p.o. at bedtime. 7. Calcium carbonate with vitamin D 1500 mg/400 units p.o. b.i.d. 8. Carbidopa and levodopa 10/100 mg 1 tablet p.o. q.i.d. 9. Digoxin 0.125 mg p.o. daily. 10. Ferrous gluconate 324 mg p.o. daily. 11. Proscar 5 mg p.o. daily. 12. Folic acid 1 mg p.o. daily. 13. Lasix 40 mg 1 tab p.o. daily. 14. DuoNeb 3 mL nebulized q.i.d. p.r.n. 15. Levofloxacin 500 mg p.o. daily until 09/07/2017. 16. Levothyroxine 75 mcg 1 tab p.o. daily. 17. Multivitamin 1 tab p.o. daily. 18. Seroquel 12.5 mg p.o. daily and 50 mg p.o. at bedtime. 19. Sennosides/docusate 2 tablets daily. FOLLOWUP: The patient to follow up with his primary care provider, Dr. Mikel López, after return to [facility] in [place]. The patient will follow up with Dr. Jyoti Samaniego with Urology Service and to contact her office in the next 3-4 weeks. CONDITION ON DISCHARGE: Stable. ACTIVITY: Ad faustina. DIET: Regular. CODE STATUS: FULL. SPECIAL INSTRUCTIONS: Continue Wilkes catheter until followup with primary urologist. DISPOSITION: Discharged to [place], [place], 09/02/2017. TIME SPENT: Total time preparing and coordinating discharge, 32 minutes.
== END 2017-09-02 19:30 | DRG 871 ==
LOC: ERS 13:07 → CCU 15:56 → SURG B 08-30 12:02
PROVIDERS: ADMIT Internal Medicine; ATTEND Internal Medicine
PROC: 0T9B80Z Drainage of Bladder with Drainage Device, Via Natural or Artificial Opening Endoscopic (ICD-10-PCS; principal; 2017-08-28)
PROC: 02HV33Z Insertion of Infusion Device into Superior Vena Cava, Percutaneous Approach (ICD-10-PCS; 2017-08-28)
DX: A41.51 Sepsis due to Escherichia coli [E. coli] (principal); R65.21 Severe sepsis with septic shock; G93.41 Metabolic encephalopathy; N17.9 Acute kidney failure, unspecified; E87.2 Acidosis; T83.83XA Hemorrhage due to genitourinary prosthetic devices, implants and grafts, initial encounter; N30.01 Acute cystitis with hematuria; S37.829A Unspecified injury of prostate, initial encounter; Y84.6 Urinary catheterization as the cause of abnormal reaction of the patient, or of later complication, without mention of misadventure at the time of the procedure; Z79.01 Long term (current) use of anticoagulants; G20 Parkinson's disease; F02.80 Dementia in other diseases classified elsewhere, unspecified severity, without behavioral disturbance, psychotic disturbance, mood disturbance, and anxiety; R33.9 Retention of urine, unspecified; I10 Essential (primary) hypertension; E78.00 Pure hypercholesterolemia, unspecified; I48.2 Chronic atrial fibrillation; I25.10 Atherosclerotic heart disease of native coronary artery without angina pectoris; E03.9 Hypothyroidism, unspecified; Z85.51 Personal history of malignant neoplasm of bladder; Z95.1 Presence of aortocoronary bypass graft; M81.0 Age-related osteoporosis without current pathological fracture; Z87.891 Personal history of nicotine dependence; Z95.810 Presence of automatic (implantable) cardiac defibrillator; N40.1 Benign prostatic hyperplasia with lower urinary tract symptoms; F32.9 Major depressive disorder, single episode, unspecified; Z99.3 Dependence on wheelchair; N36.5 Urethral false passage; N50.89 Other specified disorders of the male genital organs
CPT/HCPCS: 36415; 36556; 51702; 71045; 74176; 80048; 80053; 81003; 81015; 82533; 82553; 82805; 83605; 83735; 84100; 84443; 84484; 85025; 85060; 85610; 85730; 87040; 87077; 87086; 87149; 87186; 93005; 93306; 94640; 94760; 96361; 96365; 96366; 96367; 96375; C1769; G8981-GP-CM; G8982-GP-CK; J0692; J0696; J1160; J1580; J1650; J1720; J1940; J1956; J3370; J7050; J7626

== ENCOUNTER 2017-09-17 22:12 | Emergency (ER) | payer OTHER ==
[2017-09-17 22:37] LABS: #Eosinphils 0.4 thou/uL (0.0-0.7); #Lymphocytes 1.1 thou/uL (1.20-3.40); #Monocytes 0.5 thou/uL (0.11-0.59); #Neutrophils 4.2 thou/uL (1.40-6.50); %Basophils 0.4 % (0.0-1.0); %Eosinophils 5.8 % (0.0-10.0); %Lymphocytes 18.3 % (21.0-51.0); %Monocytes 8.4 % (0.0-10.0); %Neutrophils 67.1 % (42.0-75.0); Hemoglobin 11.9 g/dL (14.0-18.0); Mean Corpuscular HGB CONC 32.6 g/dL (32.0-36.0); Mean Corpuscular Hemoglobin 32.3 pg (27.0-31.0); Mean Corpuscular Volume 99.2 fl (80.0-94.0); Mean Platelet Volume 5.8 fL (7.4-10.4); Platelet Count 178 thou/uL (130-400); RBC Distribution Width 13.4 % (11.5-14.5); Red Blood Cell (RBC) Count 3.67 mill/uL (4.70-6.10); White Blood Cell (WBC) Count 6.2 thou/uL (4.8-10.8)
[2017-09-17 22:44] LABS: INR-International Normal Ratio 1.2; PTT 33.7 SEC (22.9-36.1); Prothrombin Time 15.3 SEC (12.0-14.7)
[2017-09-17 22:51] LABS: Bilirubin Negative (Negative); Blood, Urine Large (Negative); Glucose, Urine (Dipstick) Negative (Negative); Leukocyte Small (Negative); Protein, Urine (Dipstick) 100 mg/dL (Neg-Trace); Urobilinogen 0.2 mg/dL (0.2-1.0); pH, Urine 8.5 (5.0-9.0)
[2017-09-17 22:53] LABS: Clarity Cloudy (Clear)
[2017-09-17 22:56] LABS: Nitrite Unable to Interpret (Negative)
[2017-09-17 22:57] LABS: Specific Gravity, Urine 1.007 (1.002-1.036)
[2017-09-17 22:58] LABS: RBC/HPF GREATER THAN 50-TNTC HPF (0-3)
[2017-09-17 22:59] LABS: Squamous Epithelial 0-3 HPF (0-3)
[2017-09-17 23:00] LABS: ALT (SGPT) 8 U/L (8-55); AST (SGOT) 29 U/L (5-34); Alkaline Phosphatase 91 U/L (40-150); Anion Gap 11 mmol/L (10-20); BUN (Urea Nitrogen) 21 mg/dL (8.4-25.7); Bilirubin, Total 0.5 mg/dL (0.2-1.2); Calc. Creatinine Clearance 0 mL/min (70-130); Calcium 8.6 mg/dL (7.8-10.44); Carbon Dioxide 31 mmol/L (23-31); Chloride 99 mmol/L (98-107); Estimated GFR-MDRD 89; Globulin 2.8 g/dL (2.4-3.5); Glucose 101 mg/dL (83-110); Magnesium 1.9 mg/dL (1.6-2.6); Potassium 3.9 mmol/L (3.5-5.1); Protein, Total 5.8 g/dL (5.8-8.1); Sodium 137 mmol/L (136-145)
[2017-09-17 23:00] LABS: Bacteria/HPF None Seen HPF (None Seen); Hyaline Casts/LPF NONE SEEN LPF (0-3 Hyaline)
[2017-09-18 01:58] LABS: #Eosinphils 0.4 thou/uL (0.0-0.7); #Lymphocytes 1.4 thou/uL (1.20-3.40); #Monocytes 0.6 thou/uL (0.11-0.59); #Neutrophils 4.9 thou/uL (1.40-6.50); %Basophils 0.2 % (0.0-1.0); %Eosinophils 5.6 % (0.0-10.0); %Lymphocytes 18.6 % (21.0-51.0); %Monocytes 8.2 % (0.0-10.0); %Neutrophils 67.4 % (42.0-75.0); Hemoglobin 11.1 g/dL (14.0-18.0); Mean Corpuscular HGB CONC 32.7 g/dL (32.0-36.0); Mean Corpuscular Hemoglobin 32.1 pg (27.0-31.0); Mean Corpuscular Volume 98.3 fl (80.0-94.0); Mean Platelet Volume 5.7 fL (7.4-10.4); Platelet Count 193 thou/uL (130-400); RBC Distribution Width 13.5 % (11.5-14.5); Red Blood Cell (RBC) Count 3.45 mill/uL (4.70-6.10); White Blood Cell (WBC) Count 7.3 thou/uL (4.8-10.8)
--- NOTE | 2017-09-18 08:31 | CT ---
CT ABDOMEN AND PELVIS WITHOUT IV CONTRAST: Date: 09/17/17 HISTORY: Hematuria for two days. Recent hospitalization for similar symptoms. COMPARISON: 08/29/17. FINDINGS: There is mild left hydronephrosis with increased density seen within the left renal collecting system and left renal pelvis suggesting hemorrhage. A Wilkes catheter is noted in place, but there is increa sed density seen within the urinary bladder suggesting hemorrhage as well. Gas is present in the urin valentina bladder, probably related to the recent catheterization. No renal or ureteral calculi are seen bilaterally. There is partial visualization of AICD leads within the heart. There are prominent pleural based calcifications at the right lung base. Mild chronic bibasilar lung changes are seen. Minimal pleural based calcifications are seen on the left. Post cholecystectomy changes are noted. There is mild increased density at the liver, which represents an interval change from the prior stud y. This is overall nonspecific. Calcified granulomata are seen in the spleen. The pancreas, bilateral adrenal glands, and right kidney demonstrate a grossly normal nonenhanced CT appearance. There is colonic diverticulosis with innumerable colonic diverticula seen in the sigmoid colon. Small to moderate amount of retained fecal material is seen throughout the colon as well. Dense vascular calcifications are seen in the abdominal aorta and iliac arteries. There is retained fecal material in the colon with minimal perirectal inflammatory stranding present. This is overall nonspecific, but given mild thickening of the rectal ramos and stranding, stercoral colitis cannot be entirely excluded based on this exam. Severe multilevel degenerative changes are seen. Left total hip prosthesis is present. IMPRESSION: 1. Mild left hydronephrosis, which has slightly increased from the prior study, with increased densi ty material again seen in the left renal collecting system, as well as in the urinary bladder suggest ing hemorrhage. Wilkes catheter is again present in the urinary bladder. There is gas in the urinary b ladder likely related to the catheterization. 2. No renal or ureteral calculi seen bilaterally. 3. There is increased density of the liver which is nonspecific but can be seen with prior amiodaron e therapy, glycogen storage disease versus hemochromatosis or other etiologies. 4. Bibasilar pleural based calcifications, much more prominent at the right lung base. 5. Colonic diverticulosis with innumerable diverticula in the sigmoid colon. 6. Mild thickening of the ramos of the rectum with a moderate amount of retained fecal material in t he rectum. In addition, there is perirectal inflammatory stranding present. While these findings are overall nonspecific, stercoral colitis is a possibility. Clinical correlation is recommended. POS: AIDE
== END 2017-09-18 04:40 ==
LOC: ERS 22:12
DX: N39.0 Urinary tract infection, site not specified (principal); F03.90 Unspecified dementia, unspecified severity, without behavioral disturbance, psychotic disturbance, mood disturbance, and anxiety; G20 Parkinson's disease; I48.91 Unspecified atrial fibrillation; G47.00 Insomnia, unspecified; E78.5 Hyperlipidemia, unspecified; E03.9 Hypothyroidism, unspecified; I11.0 Hypertensive heart disease with heart failure; I50.9 Heart failure, unspecified; M81.0 Age-related osteoporosis without current pathological fracture; F32.9 Major depressive disorder, single episode, unspecified; Z79.82 Long term (current) use of aspirin; Z79.899 Other long term (current) drug therapy
CPT/HCPCS: 36415; 74176; 80053; 81003; 83735; 84443; 85025; 85610; 85730; 87086; 96361; 96365; 96366; J1956

== ENCOUNTER 2018-01-18 20:31 | Inpatient (IN) | payer MEDICARE ==
[2018-01-18] MEDS ORDERED: Acetaminophen 650 MG Suppository ONE (20:47)
[2018-01-18] MEDS ORDERED: Piperacillin/Tazobactam 4.5 GM VIAL ONE (20:47)
[2018-01-18] MEDS ORDERED: Sodium Chloride 0.9% 100 ML ONE (20:47)
[2018-01-18 20:58] LABS: Hemoglobin 11.1 g/dL (14.0-18.0); Mean Corpuscular HGB CONC 32.6 g/dL (32.0-36.0); Mean Corpuscular Hemoglobin 31.5 pg (27.0-31.0); Mean Corpuscular Volume 96.7 fL (78.0-98.0); Mean Platelet Volume 5.7 fL (7.4-10.4); Platelet Count 320 thou/uL (130-400); RBC Distribution Width 13.4 % (11.5-14.5); Red Blood Cell (RBC) Count 3.53 mill/uL (4.70-6.10); White Blood Cell (WBC) Count 10.1 thou/uL (4.8-10.8)
[2018-01-18 21:03] LABS: Bilirubin Negative (Negative); Blood, Urine Large (Negative); Clarity TURBID (Clear); Glucose, Urine (Dipstick) Negative (Negative); Leukocyte Large (Negative); Nitrite Positive (Negative); Protein, Urine (Dipstick) 100 mg/dL (Neg-Trace); Specific Gravity, Urine 1.013 (1.002-1.036)
[2018-01-18 21:06] LABS: Pathc Cast-AUWi Flag 102.87 (0-2.49)
[2018-01-18 21:14] LABS: RBC/HPF GREATER THAN 50-TNTC HPF (0-3)
[2018-01-18 21:15] LABS: Bacteria/HPF 4+ HPF (None Seen); Hyaline Casts/LPF 0-3 HYALINE CAST LPF (0-3 Hyaline)
[2018-01-18 21:17] LABS: Band 15 % (5-11); Hypochromia SLIGHT = 6-15 cells (100X) (0-5/hpf); Lymphocytes 1 % (21-51); MDiff Complete? YES; Monocytes 10 % (0-10); Neutrophil 74 % (42-75); PLT Morphology Comment Appears Adequate
[2018-01-18 21:20] LABS: ALT (SGPT) 26 U/L (8-55); AST (SGOT) 69 U/L (5-34); Albumin 2.4 g/dL (3.4-4.8); Alkaline Phosphatase 209 U/L (40-150); Anion Gap 17 mmol/L (10-20); BUN (Urea Nitrogen) 44 mg/dL (8.4-25.7); Bilirubin, Total 0.9 mg/dL (0.2-1.2); Calc. Creatinine Clearance 0 mL/min (70-130); Carbon Dioxide 26 mmol/L (23-31); Chloride 100 mmol/L (98-107); Estimated GFR-MDRD 50; Globulin 3.2 g/dL (2.4-3.5); Glucose 86 mg/dL (83-110); Potassium 4.9 mmol/L (3.5-5.1); Protein, Total 5.6 g/dL (5.8-8.1); Sodium 138 mmol/L (136-145)
[2018-01-18 21:25] LABS: Troponin I 0.118 ng/mL (< 0.028)
--- NOTE | 2018-01-18 21:28 | RAD ---
CHEST ONE VIEW 01/18/18 COMPARISON: 09/01/14 HISTORY: Dementia. Parkinson's disease. FINDINGS: Portable upright chest demonstrates the left sided transvenous defibrillator with lead position in th e right atrium and right ventricle. There is atherosclerosis of the aorta. There are sternotomy wires . Heart is enlarged. Pulmonary vessels and hilum are normal. costophrenic angles are clear. Stable ca lcification right hemidiaphragm. Chronic changes, without consolidation or mass. No pneumothorax or o sseous abnormalities. IMPRESSION: 1. Chronic changes. 2. Atherosclerosis. 3. Calcification along the right pleural margin. 4. No acute cardiopulmonary process. POS: PPP
[2018-01-18] MEDS ORDERED: Norepinephrine 8 MG/0.9% NS 250 ML ONE (22:12)
[2018-01-18] MEDS ORDERED: Aspirin 300 MG Suppository ONE (22:12)
[2018-01-18] MEDS ORDERED: Bisacodyl 5 MG TAB PO PRN (23:06)
[2018-01-18] MEDS ORDERED: Bisacodyl 10 MG SUPP PR PRN (23:06)
[2018-01-18] MEDS ORDERED: Ondansetron HCl/PF 4 MG/2 ML Vial IVP PRN (23:06)
[2018-01-18] MEDS ORDERED: Acetaminophen 650 MG Suppository PR PRN (23:06)
[2018-01-18] MEDS ORDERED: Calcium Carbonate 500 MG ChewTAB PO PRN (23:06)
[2018-01-18] MEDS ORDERED: CCU Electrolyte Replacement 1 EACH FS ONE (23:06)
[2018-01-18] MEDS ORDERED: Mag-Al 1200 mg/1200 mg/30 ML UDCUP PO PRN (23:06)
[2018-01-18] MEDS ORDERED: Senokot 8.6 MG TAB PO PRN (23:06)
[2018-01-18] MEDS ORDERED: Acetaminophen 325 MG TAB PO PRN (23:06)
[2018-01-18] MEDS ORDERED: hydrALAZINE 20 MG/ML VIAL SLOW IVP PRN (23:10)
[2018-01-19 00:35] LABS: Troponin I 0.259 ng/mL (< 0.028)
[2018-01-19 01:41] LABS: Mean Corpuscular HGB CONC 32.1 g/dL (32.0-36.0); Mean Corpuscular Hemoglobin 31.3 pg (27.0-31.0); Mean Corpuscular Volume 97.3 fL (78.0-98.0); Mean Platelet Volume 5.8 fL (7.4-10.4); Platelet Count 302 thou/uL (130-400); RBC Distribution Width 13.4 % (11.5-14.5); Red Blood Cell (RBC) Count 3.21 mill/uL (4.70-6.10); White Blood Cell (WBC) Count 16.9 thou/uL (4.8-10.8)
[2018-01-19 01:48] LABS: Band 13 % (5-11); Hypochromia SLIGHT = 6-15 cells (100X) (0-5/hpf); Lymphocytes 2 % (21-51); MDiff Complete? YES; Monocytes 7 % (0-10); Neutrophil 78 % (42-75); PLT Morphology Comment Appears Adequate
[2018-01-19 03:33] LABS: ALT (SGPT) 50 U/L (8-55); AST (SGOT) 115 U/L (5-34); Albumin 2.2 g/dL (3.4-4.8); Alkaline Phosphatase 209 U/L (40-150); Anion Gap 20 mmol/L (10-20); BUN (Urea Nitrogen) 44 mg/dL (8.4-25.7); Bilirubin, Total 1.1 mg/dL (0.2-1.2); Calc. Creatinine Clearance 28 mL/min (70-130); Calcium 7.9 mg/dL (7.8-10.44); Carbon Dioxide 19 mmol/L (23-31); Chloride 103 mmol/L (98-107); Estimated GFR-MDRD 43; Globulin 3.1 g/dL (2.4-3.5); Glucose 90 mg/dL (83-110); Potassium 4.4 mmol/L (3.5-5.1); Protein, Total 5.3 g/dL (5.8-8.1); Sodium 138 mmol/L (136-145)
[2018-01-19 03:36] LABS: Troponin I 0.361 ng/mL (< 0.028)
--- NOTE | 2018-01-19 03:39 | HP ---
DATE OF ADMISSION: 01/18/2018 Please note that the patient was seen prior to midnight. CHIEF COMPLAINT: Fever. HISTORY OF PRESENT ILLNESS: Mr. Morales is an 87-year-old male with past medical history of dementia wh surjit is a resident of [facility] who was sent for the complaints of fever. History is ma inly obtained by the chart review and discussion with emergency room physician. There is no family a t bedside and the patient is not able to provide any history because of severe dementia. The patient was sent from the [facility] with the complaint of fever and he was found to have a temperature of 102.7 rectally upon presentation. His blood pressure was low and 106/35 and later, he developed worsening hypotension in the emergency room. His blood pressure dropped to 80s/ 50s. He was resuscitated with 2-3 liters of fluid and eventually was started on Levophed when his bl ood pressure did not recover. His workup was consistent with possible urinary tract infection as wel l as lactic acidosis and acute renal insufficiency. His creatinine was 1.34 with a baseline creatini ne of 1 and his troponin was bumped to 0.118 with normal CK-MB. His BNP was 325. He was given empiric IV antibiotics in the emergency room, namely vancomycin and Zosyn and is now renea ng admitted to the hospital with severe sepsis secondary to urinary tract infection and septic shock. His chest x-ray was unremarkable. PAST MEDICAL HISTORY: 1. Dementia [facility] resident essentially bed bound. 2. Hypertension. 3. Dyslipidemia. 4. Chronic atrial fibrillation. 5. History of septic shock due to urinary tract infection earlier this year in 06/2017. 6. History of coronary artery disease. 7. Bladder cancer. 8. Depression. 9. Osteoporosis. PAST SURGICAL HISTORY: 1. Coronary artery bypass graft. 2. History of bladder cancer surgery. ALLERGIES: No known medication allergies. FAMILY HISTORY: Cannot be obtained as the patient is not able to provide any history at this time. PERSONAL HISTORY: According to the [facility] records, no history of drug, tobacco or alcohol abus e. Lives at [facility]. CURRENT MEDICATIONS: As follows, Aldactone 25 mg daily, carbidopa/levodopa 10/100 mg 1 tablet p.o. t .i.d., alendronate weekly, alfuzosin 10 mg daily, multivitamin daily, Senokot daily, Seroquel 50 mg a t bedtime and 12.5 mg in the morning, levothyroxine 75 mcg daily, folic acid 1 mg daily, Lasix 40 mg p.o. b.i.d., Proscar 5 mg daily, ferrous sulfate 325 mg daily, digoxin 0.125 mg daily, atorvastatin 4 0 mg daily, aspirin 81 mg daily, amiodarone 200 mg daily. REVIEW OF SYSTEMS: Unobtainable as the patient is not able to talk at all. He is nonresponsive, tho ugh he is not alert and oriented at all. LABORATORY DATA: CBC shows WBCs at 10.1 with repeat CBC showing WBCs of 16.9. Hemoglobin 11.1, plat elet count 320, 15% bands. Serum chemistries show BUN 44, creatinine 1.34. Lactic acid 4.7 with rep eat lactic acid of 6.0, AST 69, alkaline phosphate is 209, creatine kinase 276, troponin 0.118 with a CK-MB of 3.0. BNP 325. Cortisol level is 49. Urinalysis showed multiple wbc's, rbc's, leukocyte e sterase, blood, nitrite and bacteria. Chest x-ray by my review has no evidence of pleural effusion, edema or infiltrate. A 12-lead EKG by my review shows controlled ventricular rate with atrial fibril lation, no ST or T-wave changes. PHYSICAL EXAMINATION: VITAL SIGNS: Most recent vital signs, temperature 103.1, heart rate 96, respirations 45, saturating 97% on room air, blood pressure 88/38. GENERAL: No acute distress. He is disheveled and unkempt and cachectic. He keeps lying on the side of the bed and seems to have a resting tremor. He is awake, but nonresponsive. Foul smelling. HEENT: Difficult to perform as the patient does not follow any commands. He has frontal and tempora l wasting. No scleral icterus. Pupils are equal, reactive to light. Head is normocephalic, atrauma tic. NECK: Supple without any lymphadenopathy, JVD or bruit. CHEST: Clear to auscultation without any wheezing, rales. Rhonchi present in the bilateral lower lo bes. CARDIOVASCULAR: Rate and rhythm is regular without any murmur, rubs or gallops. ABDOMEN: Soft, nontender, nondistended. EXTREMITIES: Free of any cyanosis, clubbing, or edema. SKIN: Evaluation shows extensive decubitus ulcer in the sacrum and scrotal area. NEUROLOGICAL: He is not oriented to self. He is nonresponsive. No nystagmus. He is nonconversant. He does not let me examine him fully and he does have resting tremor. IMPRESSION AND PLAN: 1. Severe sepsis with end-organ damage and septic shock. Most likely, source of urinary tract infec tion at this time. He will be treated with IV fluids with close monitoring for fluid overload and br oad spectrum empiric IV antibiotics, namely Rocephin and vancomycin for now. Urine culture and blood culture results will be followed and we will follow the electrolyte panel on a daily basis. 2. Acute renal insufficiency. The patient has evidence of severe dehydration, likely secondary to s epsis. IV fluids as above. The patient is on high dose of diuretics. For some reason at this time, we will hold these and readdress the issue if he needs all of this diuresis or not. 3. Urinary tract infection. The patient does have an indwelling Wilkes catheter. He has seen by Dr. Samaniego from the Urology department during his last hospitalization. We will resume his Zosyn and Pr jessica once he is able to take oral medication. 4. Elevated troponin, likely demand ischemia from severe hypotension and septic shock. The patient does have history of coronary artery disease and chronic atrial fibrillation. He had an echocardiogr am done in 08/2017, which did not have any evidence of cardiomyopathy. At this time, we will continu e to trend serial cardiac enzymes and resume home medication once he is able to tolerate oral. 5. We will consult OT, PT and speech therapist and keep the patient n.p.o. He most likely is not a good candidate to be fed by mouth. 6. Chronic atrial fibrillation, currently rate controlled. We will resume his amiodarone once he is able to take oral medication as well as digoxin after checking a digoxin level and if it is not elev ated. 7. Severe dementia. The patient is on carbidopa/levodopa. He does not have Parkinson's listed in h is past medical history, but it is possible that his dementia is associated with parkinsonism. We wi ll resume this Sinemet once he is able to take oral medications. 8. Elevated liver enzymes. 9. Mild rhabdomyolysis. His CK is elevated at 276. IV fluids have been started for those treatment s as well. 10. Lactic acidosis secondary to severe sepsis. 11. CODE STATUS: The patient has very poor prognosis long-term. He has severe dementia and this is a second hospitalization with septic shock from the urinary tract infection. ER physician has discu ssed the code status with his and son and at this time, he is a FULL CODE as per ER physician's report. We will consult Palliative Care to arrange a family conference to address the prognosis of t his patient with the family and address the code status again. 12. Deep venous thrombosis and gastrointestinal prophylaxis. DISPOSITION: Mr. Morales is currently being admitted to the Critical Care Unit with severe sepsis and s eptic shock as well as renal failure. Estimated length of stay at this time is at least 3-4 midnight s. Further management will depend upon his clinical course. Total time spent in taking care of this critically ill patient is 45 minutes.
[2018-01-19] MEDS: Vasopressin 40 UNIT, Admixture Fee 1 EACH in Sodium Chloride 0.9% 100 ML IV PRN (04:22)
[2018-01-19 04:47] LABS: Digoxin 2.12 ng/mL (0.8-2.0)
[2018-01-19] MEDS: Norepinephrine 8 MG/0.9% NS 250 ML IVPB PRN ×2 (06:00→11:01)
[2018-01-19] MEDS: Levothyroxine Sodium 75 MCG TAB PO SCH (07:16)
[2018-01-19] MEDS ORDERED: Vancomycin HCl 750 MG in Sodium Chloride 0.9% 250 ML 250 ML IVPB SCH (09:00)
--- NOTE | 2018-01-19 09:06 | PDOC.PN ---
- Subjective Encounter Start Date: 01/19/18 Encounter Start Time: 09:05 Mr. Morales was seen in follow-up of UTI with sepsis. He is essentially non- verbal. He is laying in bed with both eyes open, and will not respond when spoken to, or to light sternal rub. He will not follow commands. - Objective Resuscitation Status: Resuscitation Status FULL:Full Resuscitation MAR Reviewed: Yes Vital Signs & Weight: Vital Signs (12 hours) Temp Pulse Resp Pulse Ox 01/19/18 01:26 103.1 F H 96 45 H 97 Weight Weight 130 lb 1.164 oz Most Recent Monitor Data Heart Rate from ECG 82 NIBP 127/45 NIBP BP-Mean 74 Respiration from ECG 36 SpO2 99 I&O: 01/18/18 01/19/18 01/20/18 06:59 06:59 06:59 Intake Total 0 0 Output Total 100 80 Balance -100 -80 Result Diagrams: 01/19/18 01:07 01/19/18 Unknown Additional Labs: Accuchecks 01/18/18 23:31 POC Glucose 110 Phys Exam - Physical Examination HEENT: PERRLA Respiratory: no wheezing, no rales, no rhonchi, clear to auscultation bilateral Cardiovascular: RRR, no significant murmur, no rub Gastrointestinal: soft, no distention, positive bowel sounds Musculoskeletal: no edema + knees are a bit contracted Deviation from normal: + ulcerations, and excoriations to both feet Dx/Plan (1) Sepsis Code(s): A41.9 - SEPSIS, UNSPECIFIED ORGANISM Status: Acute (2) UTI (urinary tract infection) Status: Acute Qualifiers: Urinary tract infection type: acute cystitis Hematuria presence: with hematuria Qualified Code(s): N30.01 - Acute cystitis with hematuria (3) Parkinson disease Code(s): G20 - PARKINSON'S DISEASE Status: Chronic (4) RACHELLE (acute kidney injury) Code(s): N17.9 - ACUTE KIDNEY FAILURE, UNSPECIFIED Status: Resolved - Plan * UTI with sepsis- Will continue Rocephin and Vancomycin ( Urine culture back in August was positive for E. Coli sensitive to rocephin) - until culture results are final * Sepsis- he is still requiring two pressors for blood pressure support * Acute renal failure- not improved * Will give a fluid bolus, and continue IV fluids resuscitation, and monitor his progress- will repeat Lactic Acid * Speech therapy to address his swallowing. * Elevated troponins- Likely due to sepsis
[2018-01-19] MEDS ORDERED: Sodium Chloride 0.9% 500 ML IV SCH (09:15)
[2018-01-19] MEDS: Alfuzosin 10 MG TABDR...ER PO SCH (09:36)
[2018-01-19] MEDS: cefTRIAXone\\ROCEPHIN 2 GM in Sodium Chloride 0.9% 100 ML IVPB SCH (09:48)
[2018-01-19] MEDS: Heparin 5,000 UNITS/ML VIAL SC SCH ×2 (09:50→20:32)
[2018-01-19] MEDS: Famotidine/PF 20 mg/2ml Vial SLOW IVP SCH (09:52)
[2018-01-19] MEDS: Sodium Chloride 0.9% 1,000 ML IV SCH (09:54)
[2018-01-19] MEDS: Carbidopa/Levodopa 10-100 mg Tablet PO SCH ×3 (11:04→20:32)
[2018-01-19] MEDS: Amiodarone 200 MG TAB PO SCH (11:04)
[2018-01-19] MEDS: Calcium Carbonate + Vit D 1 TAB PO SCH ×2 (11:04→20:31)
[2018-01-19] MEDS: Ferrous Gluconate 324 MG TAB PO SCH (11:05)
[2018-01-19] MEDS: Multivitamin W/ Minerals 1 TAB PO SCH (11:06)
[2018-01-19] MEDS: Folic Acid 1 MG TAB PO SCH (11:06)
[2018-01-19] MEDS: Finasteride 5 MG TAB PO SCH (11:06)
[2018-01-19 11:21] LABS: Lactic Acid 5.6 mmol/L (0.5-2.2)
[2018-01-19 11:22] LABS: Critical Call Chem Troponin I RESULT DECREASING; Troponin I 0.312 ng/mL (< 0.028)
--- NOTE | 2018-01-19 12:37 | PDOC.PULCN ---
<Chris Wood - Last Filed: 01/19/18 12:35> Pulmonology Consult: HPI - Date of Consult Date: 01/19/18 Time: 12:30 - Consult Details Reason for Consult: ICU admission - History of Present Illness HPI: ROSA CRAMER is a 87 year-old M who presents from a [facility] with complaint of fever. He has a hx of severe dementia and is unable to communicate this morning or at the time of initial presentation. In the ED he was noted to be febrile with hypotension and tacycardia. He was dx'd with septic shock and given 2-3 L of IVF in addition to vanc and zosyn. Additionally, he required both levophed and vasopressin. At the time of admission the most likely source was determined to be UTI. Pulmonology Consult: ROS - Review of Systems ROS unobtainable: due to mental status Pulmonology Consult: PMH Source: other (Chart review) Past Medical History: Demenia HTN HLD afib CAD hx of bladder cancer Depression osteoporosis - Social History Smoking Status: Never smoker Alcohol Use: none Drug Use History: none Pulmonology Consult: Meds - Medications MAR Reviewed: Yes Medications: Current Medications Acetaminophen (Tylenol) 650 mg PO Q4H PRN PRN Reason: Headache/Fever or Pain Acetaminophen (Tylenol) 650 mg CA Q4H PRN PRN Reason: Headache/Fever or Pain Last Admin: 01/19/18 03:20 Dose: 650 mg Al Hydroxide/Mg Hydroxide (Maalox) 30 ml PO Q6H PRN PRN Reason: Heartburn or Indigestion Alfuzosin HCl (Uroxatral) 10 mg PO DAILY [facility] Last Admin: 01/19/18 09:36 Dose: Not Given Amiodarone HCl (Cordarone) 200 mg PO DAILY [facility] Last Admin: 01/19/18 11:04 Dose: Not Given Atorvastatin Calcium (Lipitor) 40 mg PO HS [facility] Bisacodyl (Dulcolax) 10 mg PO DAILYPRN PRN PRN Reason: Constipation Bisacodyl (Dulcolax) 10 mg CA Q24H PRN PRN Reason: Constipation Calcium Carbonate (Tums) 1,000 mg PO Q4H PRN PRN Reason: Heartburn or Indigestion Calcium/Vitamin D (Caltrate 600 + Vit D) 1 tab PO BID [facility] Last Admin: 01/19/18 11:04 Dose: Not Given Carbidopa/Levodopa (Sinemet 10/100) 1 tab PO TID [facility] Last Admin: 01/19/18 11:04 Dose: Not Given Famotidine (Pepcid) 20 mg SLOW IVP DAILY [facility] Last Admin: 01/19/18 09:52 Dose: 20 mg Ferrous Gluconate (Fergon) 324 mg PO DAILY [facility] Last Admin: 01/19/18 11:05 Dose: Not Given Finasteride (Proscar) 5 mg PO DAILY [facility] Last Admin: 01/19/18 11:06 Dose: Not Given Folic Acid (Folvite) 1 mg PO DAILY [facility] Last Admin: 01/19/18 11:06 Dose: Not Given Heparin Sodium (Porcine) (Heparin) 5,000 units SC BID [facility] Last Admin: 01/19/18 09:50 Dose: 5,000 units Hydralazine HCl (Apresoline) 10 mg SLOW IVP Q4H PRN PRN Reason: SBP>170 Hydrocortisone (Cortef) 50 mg PO Q6H [facility] Ceftriaxone Sodium 2 gm/ (Sodium Chloride) 100 mls @ 200 mls/hr IVPB DAILY [facility] Last Admin: 01/19/18 09:48 Dose: 100 mls Sodium Chloride (Normal Saline 0.9%) 1,000 mls @ 100 mls/hr IV .Q10H [facility] Last Admin: 01/19/18 09:54 Dose: 1,000 mls Vancomycin HCl 1 gm/ Device 200 mls @ 200 mls/hr IVPB Q24HR@2200 [facility] Norepinephrine Bitartrate (Levophed) 250 mls @ 0 mls/hr IVPB INF PRN; Protocol PRN Reason: MAP>65 Last Admin: 01/19/18 11:01 Dose: 250 mls Vasopressin 40 unit/Miscellaneous Medication 1 each/ Sodium Chloride 102 mls @ 0 mls/hr IV INF PRN; Protocol PRN Reason: SBP < 90 or MAP < 65 Last Admin: 01/19/18 04:22 Dose: 102 mls Ascorbic Acid 2,000 mg/ Sodium (Chloride) 54 mls @ 100 mls/hr IVPB BID [facility] Iron/Minerals/Multivitamins (Theragran M) 1 tab PO DAILY [facility] Last Admin: 01/19/18 11:06 Dose: Not Given Levothyroxine Sodium (Synthroid) 75 mcg PO 0600 [facility] Last Admin: 01/19/18 07:16 Dose: Not Given Miscellaneous Medication (Pharmacy To Dose) 0 each IVPB PRN PRN PRN Reason: [facility] Pharmacy to Dose Ondansetron HCl (Zofran) 4 mg IVP Q6H PRN PRN Reason: Nausea/Vomiting Quetiapine Fumarate (Seroquel) 50 mg PO HS [facility] Quetiapine Fumarate (Seroquel) 12.5 mg PO DAILY [facility] Senna (Senokot) 2 tab PO HSPRN PRN PRN Reason: Constipation Sodium Chloride (Flush - Normal Saline) 10 ml IVF Q12HR [facility] Last Admin: 01/19/18 09:52 Dose: 10 ml Sodium Chloride (Flush - Normal Saline) 10 ml IVF PRN PRN PRN Reason: Saline Flush - Allergies Allergies/Adverse Reactions: Allergies Allergy/AdvReac Type Severity Reaction Status Date / Time lisinopril Allergy Verified 01/19/18 00:52 Pulmonology Consult: PE - Physical Exam Constitutional: NAD HEENT: moist MMs Neck: no JVD Cardiovascular: no significant murmur Deviation from normal: irregularly irregular Respiratory: clear to auscultation bilaterally Gastrointestinal: soft, non-tender, no distention, positive bowel sounds Musculoskeletal: no edema Neurological: non-focal, moves all 4 limbs Deviation from normal: Does not respond to questioning or follow commands Skin: no rash Pulmonology Consult: Results - Labs Result Diagrams: 01/19/18 01:07 01/19/18 Unknown - Radiology Interpretation MRI - abdomen Status: image reviewed by me, report reviewed by me (no acute process) Pulmonology Consult: A/P - Problem (1) Septic shock Current Visit: Yes Code(s): A41.9 - SEPSIS, UNSPECIFIED ORGANISM; R65.21 - SEVERE SEPSIS WITH SEPTIC SHOCK Status: Acute (2) RACHELLE (acute kidney injury) Current Visit: Yes Code(s): N17.9 - ACUTE KIDNEY FAILURE, UNSPECIFIED Status : Resolved (3) Lactic acidosis Current Visit: Yes Code(s): E87.2 - ACIDOSIS Status: Acute (4) Leukocytosis Current Visit: Yes Code(s): D72.829 - ELEVATED WHITE BLOOD CELL COUNT, UNSPECIFIED Status: Acute (5) UTI (urinary tract infection) Current Visit: Yes Status: Suspected (6) Dementia Current Visit: Yes Code(s): F03.90 - UNSPECIFIED DEMENTIA WITHOUT BEHAVIORAL DISTURBANCE Status: Chronic Qualifiers: Dementia type: unspecified type (7) Parkinson disease Current Visit: Yes Code(s): G20 - PARKINSON'S DISEASE Status: Chronic (8) Elevated troponin Current Visit: Yes Code(s): R74.8 - ABNORMAL LEVELS OF OTHER SERUM ENZYMES Status: Acute (9) Pressure injury, stage 1 Current Visit: Yes Code(s): L89.91 - PRESSURE ULCER OF UNSPECIFIED SITE, STAGE 1 Status: Acute - Time Time: 50% of the time was spent in coordination of care (as documented) at patient's floor/unit and/or counseling patient. Time with Patient: greater than 50 minutes - Plan Plan: Septic shock - currently stable on 2 pressers. Will titrate down as tolerated - Start hydrocortisone and vitamin C - currently most likely source is urine, however the sample is suboptimal. Cultures are pending - continue current abx - pt has received appropriate IVF, continue maintenance fluids as long as output stays up. - palliative consult pending for goals of care. UTI - suspected, cultures pending. manage as above. RACHELLE - secondary to sepsis. Output has been good. Continue to monitor labs in am Elevated trops - down trending. Secondary to demand Stage 1 pressure ulcer - L low back. identified on admission. Dress and rotate pt often Parkinsons - continue home meds Dementia - continue home meds. Unclear at this time what his baseline functional status is. Dispo: guarded. Pt is currently stable, however requiring multiple pressers. <Sudhir Mark - Last Filed: 01/20/18 08:36> Pulmonology Consult: HPI - History of Present Illness HPI: ROSA CRAMER is a 87 year-old M Pulmonology Consult: Meds - Medications Medications: Current Medications Acetaminophen (Tylenol) 650 mg PO Q4H PRN PRN Reason: Headache/Fever or Pain Acetaminophen (Tylenol) 650 mg CA Q4H PRN PRN Reason: Headache/Fever or Pain Last Admin: 01/19/18 03:20 Dose: 650 mg Al Hydroxide/Mg Hydroxide (Maalox) 30 ml PO Q6H PRN PRN Reason: Heartburn or Indigestion Alfuzosin HCl (Uroxatral) 10 mg PO DAILY [facility] Last Admin: 01/19/18 09:36 Dose: Not Given Amiodarone HCl (Cordarone) 200 mg PO DAILY [facility] Last Admin: 01/19/18 11:04 Dose: Not Given Atorvastatin Calcium (Lipitor) 40 mg PO HS [facility] Last Admin: 01/19/18 20:31 Dose: Not Given Bisacodyl (Dulcolax) 10 mg PO DAILYPRN PRN PRN Reason: Constipation Bisacodyl (Dulcolax) 10 mg CA Q24H PRN PRN Reason: Constipation Calcium Carbonate (Tums) 1,000 mg PO Q4H PRN PRN Reason: Heartburn or Indigestion Calcium/Vitamin D (Caltrate 600 + Vit D) 1 tab PO BID [facility] Last Admin: 01/19/18 20:31 Dose: Not Given Carbidopa/Levodopa (Sinemet 10/100) 1 tab PO TID [facility] Last Admin: 01/19/18 20:32 Dose: Not Given Famotidine (Pepcid) 20 mg SLOW IVP DAILY [facility] Last Admin: 01/19/18 09:52 Dose: 20 mg Ferrous Gluconate (Fergon) 324 mg PO DAILY [facility] Last Admin: 01/19/18 11:05 Dose: Not Given Finasteride (Proscar) 5 mg PO DAILY [facility] Last Admin: 01/19/18 11:06 Dose: Not Given Folic Acid (Folvite) 1 mg PO DAILY [facility] Last Admin: 01/19/18 11:06 Dose: Not Given Heparin Sodium (Porcine) (Heparin) 5,000 units SC BID [facility] Last Admin: 01/19/18 20:32 Dose: 5,000 units Hydralazine HCl (Apresoline) 10 mg SLOW IVP Q4H PRN PRN Reason: SBP>170 Hydrocortisone Sodium Succinate (Solu-Cortef) 50 mg IVP Q6HR [facility] Stop: 01/26/18 12:01 Last Admin: 01/20/18 06:00 Dose: 50 mg Ceftriaxone Sodium 2 gm/ (Sodium Chloride) 100 mls @ 200 mls/hr IVPB DAILY [facility] Last Admin: 01/19/18 09:48 Dose: 100 mls Sodium Chloride (Normal Saline 0.9%) 1,000 mls @ 100 mls/hr IV .Q10H [facility] Last Admin: 01/19/18 09:54 Dose: 1,000 mls Vancomycin HCl 1 gm/ Device 200 mls @ 200 mls/hr IVPB Q24HR@2200 [facility] Last Admin: 01/19/18 22:00 Dose: 200 mls Norepinephrine Bitartrate (Levophed) 250 mls @ 0 mls/hr IVPB INF PRN; Protocol PRN Reason: MAP>65 Last Admin: 01/20/18 00:08 Dose: 250 mls Vasopressin 40 unit/Miscellaneous Medication 1 each/ Sodium Chloride 102 mls @ 0 mls/hr IV INF PRN; Protocol PRN Reason: SBP < 90 or MAP < 65 Last Admin: 01/20/18 00:13 Dose: 102 mls Thiamine HCl 200 mg/ Sodium (Chloride) 52 mls @ 104 mls/hr IVPB Q12HR [facility] Stop: 01/23/18 09:29 Last Admin: 01/19/18 20:35 Dose: 52 mls Ascorbic Acid 1,500 mg/ Sodium (Chloride) 53 mls @ 98.148 mls/hr IVPB Q6HR [facility] Stop: 01/23/18 18:01 Last Admin: 01/20/18 06:00 Dose: 53 mls Iron/Minerals/Multivitamins (Theragran M) 1 tab PO DAILY [facility] Last Admin: 01/19/18 11:06 Dose: Not Given Levothyroxine Sodium (Synthroid) 75 mcg PO 0600 [facility] Last Admin: 01/20/18 08:00 Dose: Not Given Miscellaneous Medication (Pharmacy To Dose) 0 each IVPB PRN PRN PRN Reason: [facility] Pharmacy to Dose Ondansetron HCl (Zofran) 4 mg IVP Q6H PRN PRN Reason: Nausea/Vomiting Quetiapine Fumarate (Seroquel) 50 mg PO HS [facility] Last Admin: 01/19/18 20:34 Dose: Not Given Quetiapine Fumarate (Seroquel) 12.5 mg PO DAILY [facility] Last Admin: 01/19/18 13:16 Dose: Not Given Senna (Senokot) 2 tab PO HSPRN PRN PRN Reason: Constipation Sodium Chloride (Flush - Normal Saline) 10 ml IVF Q12HR [facility] Last Admin: 01/19/18 20:34 Dose: 10 ml Sodium Chloride (Flush - Normal Saline) 10 ml IVF PRN PRN PRN Reason: Saline Flush Pulmonology Consult: Results - Labs Result Diagrams: 01/20/18 06:25 01/20/18 06:25 Pulmonology Consult: A/P - Time Time: 50% of the time was spent in coordination of care (as documented) at patient's floor/unit and/or counseling patient. Attending Addendum - Attending Addendum Date/Time: 01/20/18835 I personally evaluated the patient and discussed the management with Dr. Wood. I agree with the History, Examination, Assessment and Plan documented above with any addition or exceptions noted below. 70 minutes have been devoted to this patient in various activities. I personally reviewed all imaging studies and laboratory data noted within this document. For fifty percent of this time, I was interacting with the patient at the bedside or coordinating care with the care team. For the remainder of the time I was immediately available to the patient in the hospital unit.
--- NOTE | 2018-01-19 13:45 | PQF ---
CLINICAL DOCUMENTATION IMPROVEMENT CLARIFICATION FORM: ICD-10 Updated PLEASE DO AN ADDENDUM TO THE PROGRESS NOTE WITH ANY DOCUMENTATION UPDATES OR ADDITIONS AND CARRY THROUGH TO DC SUMMARY. THANK YOU. DATE: ATTN: DR. VENANCIO HOLDER Please exercise your independent, professional judgment in responding to the clarification form. Clinical indicators are provided on the bottom of this form for your review. Please check appropriate box(s): [X ] UTI please specify if due to or related to (as applicable): [ X] Indwelling catheter [ ] Unable to determine etiology [ ] Other diagnosis [ ] Unable to determine For continuity of documentation, please document condition throughout progress notes and discharge summary. Thank You. CLINICAL INDICATORS - SIGNS / SYMPTOMS / LABS ER PRESENTATION 01/18: GENITOURINARY MALE: ASSOCIATED WITH INDWELLING URINARY CATHETER IN PLACE ON ARRIVAL FROM [facility] H&P DOCUMENTATION (DAVIDA) 01/18: IMPRESSION & PLAN: 3) UTI. THE PATIENT DOES HAVE AN INDWELLING JONES CATHETER. PN 01/19 (GLORY): DX/PLAN: 2) UTI WITH SEPSIS RISK FACTORS: SEVERE SEPSIS W/SEPTIC SHOCK UTI INDWELLING JONES CATHETER ON ARRIVAL TO ER DEBILITATED [place] PATIENT TREATMENT: IV ANTIBIOTICS (VANCOMYCIN & ROCEPHIN 01/18 - PRESENT) IVF (NS 01/18 - PRESENT) THANK YOU! Juliet (This form is maintained as a part of the permanent medical record) 2014 [employer]. All Rights Reserved Juliet Hicks RN, BSN [email or web address] Office: [phone] [facility]
[2018-01-19] MEDS: Hydrocortisone Sod Succ/PF 100 mg/2 ml Vial IVP SCH (17:31)
[2018-01-19] MEDS: Atorvastatin Calcium 40 MG TAB PO SCH (20:31)
[2018-01-19] MEDS ORDERED: Vancomycin HCl 1 GM in Premix Bag 1 BAG IVPB SCH (22:00)
[2018-01-20] MEDS: Norepinephrine 8 MG/0.9% NS 250 ML IVPB PRN ×3 (00:08→19:59)
[2018-01-20] MEDS: Vasopressin 40 UNIT, Admixture Fee 1 EACH in Sodium Chloride 0.9% 100 ML IV PRN ×2 (00:13→16:00)
[2018-01-20] MEDS: Hydrocortisone Sod Succ/PF 100 mg/2 ml Vial IVP SCH ×3 (06:00→17:35)
[2018-01-20 06:50] LABS: Hemoglobin 10.5 g/dL (14.0-18.0); Mean Corpuscular HGB CONC 30.6 g/dL (32.0-36.0); Mean Corpuscular Hemoglobin 30.1 pg (27.0-31.0); Mean Corpuscular Volume 98.6 fL (78.0-98.0); Mean Platelet Volume 5.9 fL (7.4-10.4); Platelet Count 429 thou/uL (130-400); RBC Distribution Width 13.7 % (11.5-14.5); Red Blood Cell (RBC) Count 3.48 mill/uL (4.70-6.10); White Blood Cell (WBC) Count 37.8 thou/uL (4.8-10.8)
[2018-01-20 07:04] LABS: Anion Gap 21 mmol/L (10-20); BUN (Urea Nitrogen) 50 mg/dL (8.4-25.7); Calc. Creatinine Clearance 32 mL/min (70-130); Calcium 7.8 mg/dL (7.8-10.44); Carbon Dioxide 17 mmol/L (23-31); Chloride 113 mmol/L (98-107); Estimated GFR-MDRD 50; Glucose 129 mg/dL (83-110); Potassium 4.6 mmol/L (3.5-5.1); Sodium 146 mmol/L (136-145)
[2018-01-20 07:24] LABS: Band 30 % (5-11); Burr Cells SLIGHT = 2-5 cells (100X) (0-1/hpf); MDiff Complete? YES; Monocytes 5 % (0-10); Neutrophil 65 % (42-75); PLT Morphology Comment Appears Increased; Vacuoles SLIGHT
[2018-01-20] MEDS: Levothyroxine Sodium 75 MCG TAB PO SCH (08:00)
[2018-01-20] MEDS ORDERED: Gentamicin Sulfate 300 MG in Sodium Chloride 0.9% 100 ML IVPB SCH (08:45)
--- NOTE | 2018-01-20 08:45 | PDOC.PN ---
- Subjective Encounter Start Date: 01/20/18 Encounter Start Time: 08:43 Mr. Morales was seen today in follow-up of UTI with sepsis. He is more alert, and trying to communicate. He will also try to squeeze my hand, but it is very weak. - Objective Resuscitation Status: Resuscitation Status FULL:Full Resuscitation MAR Reviewed: Yes Vital Signs & Weight: Vital Signs (12 hours) Temp 01/20/18 08:00 100.6 F H 01/20/18 04:00 98.6 F 01/20/18 00:00 98.6 F Weight Admit Weight 130 lb Weight 130 lb 1.164 oz Most Recent Monitor Data Heart Rate from ECG 76 NIBP 134/54 NIBP BP-Mean 86 Respiration from ECG 27 SpO2 100 I&O: 01/19/18 01/20/18 01/21/18 06:59 06:59 06:59 Intake Total 0 4143.6 Output Total 100 1620 55 Balance -100 2523.6 -55 Result Diagrams: 01/20/18 06:25 01/20/18 06:25 Additional Labs: Accuchecks 01/19/18 21:09 POC Glucose 188 H Phys Exam - Physical Examination HEENT: PERRLA Respiratory: no wheezing, no rales, no rhonchi, clear to auscultation bilateral Cardiovascular: RRR, no significant murmur, no rub Gastrointestinal: soft, non-tender, positive bowel sounds Musculoskeletal: no edema + excoriations of the toes, and dillon prominences on knees Neurological: moves all 4 limbs Dx/Plan (1) Sepsis Code(s): A41.9 - SEPSIS, UNSPECIFIED ORGANISM Status: Acute (2) UTI (urinary tract infection) Status: Suspected (3) Parkinson disease Code(s): G20 - PARKINSON'S DISEASE Status: Chronic (4) RACHELLE (acute kidney injury) Code(s): N17.9 - ACUTE KIDNEY FAILURE, UNSPECIFIED Status: Resolved - Plan * UTI with sepsis- Blood cultures are growing E. Coli- sensitivities are still pending- his WBC count continues to rise, will give a one time dose of Gentamicin, pending final culture results * He continues to require pressors- titrate as tolerated * Mild Hypernatremia- will change fluids to 1/2 NS * Acute renal failure- slightly improved * Nutrition- still await Speech evaluation, he may need an alternate form of nutrition if he is not cleared for p.o. soon. * Parkinson's Disease- medications are on hold while he is NPO
[2018-01-20] MEDS ORDERED: Sodium Chloride 0.45% 1,000 ML IV SCH (09:00)
[2018-01-20] MEDS: Sodium Chloride 0.9% 1,000 ML IV SCH ×2 (09:32→11:53)
[2018-01-20] MEDS: Heparin 5,000 UNITS/ML VIAL SC SCH ×2 (09:43→20:02)
[2018-01-20] MEDS: Famotidine/PF 20 mg/2ml Vial SLOW IVP SCH (09:46)
[2018-01-20] MEDS: Folic Acid 1 MG TAB PO SCH (09:49)
[2018-01-20] MEDS: Amiodarone 200 MG TAB PO SCH (09:49)
[2018-01-20] MEDS: Multivitamin W/ Minerals 1 TAB PO SCH (09:49)
[2018-01-20] MEDS: Finasteride 5 MG TAB PO SCH (09:50)
[2018-01-20] MEDS: Calcium Carbonate + Vit D 1 TAB PO SCH ×2 (09:50→20:01)
[2018-01-20] MEDS: Ferrous Gluconate 324 MG TAB PO SCH (09:51)
[2018-01-20] MEDS: Alfuzosin 10 MG TABDR...ER PO SCH (09:51)
[2018-01-20] MEDS: Carbidopa/Levodopa 10-100 mg Tablet PO SCH ×3 (09:52→20:01)
[2018-01-20] MEDS: cefTRIAXone\\ROCEPHIN 2 GM in Sodium Chloride 0.9% 100 ML IVPB SCH (10:30)
[2018-01-20] MEDS ORDERED: Meropenem 1 GM in Sodium Chloride 0.9% 100 ML IVPB SCH (12:00)
[2018-01-20 14:02] VITALS: BMI 20.3
--- NOTE | 2018-01-20 15:11 | PRG ---
DATE OF SERVICE: 01/20/2018 SERVICE: Pulmonary Medicine. INTERVAL HISTORY: Patient is doing really quite well from a respiratory standpoint. Breathing otto, he is doing fine. He is on fewer pressors than he was yesterday. We were rapidly titrating down. He is on 20 of Levophed and still on vasopressin. Otherwise, there were no events overnight. PHYSICAL EXAMINATION: VITAL SIGNS: Afebrile currently with a T-max overnight of 101.3, pulse 75, blood pressure 135/53, re spirations 38, saturation 99% on room air. GENERAL: Patient is awake and alert, in no apparent distress. LUNGS: Excellent air entry. There is no prolonged expiratory phase or wheezing appreciated. HEART: Normal rate, regular. ABDOMEN: Soft, nontender and nondistended. Bowel sounds are positive. MUSCULOSKELETAL: No cyanosis or clubbing. There is no pitting in the bilateral lower extremities. NEUROLOGIC: Grossly nonfocal. LABORATORY DATA: WBC 37.8, hemoglobin 10.5, platelets 429,000. Band count is increasing to 30%. Cr eatinine 1.36, BUN 50, anion gap 21, bicarbonate 17. Sodium 146, chloride 113. E. coli is growing i n 2/2 blood cultures. Urine culture is negative to date. ASSESSMENT: 1. Septic shock. 2. Bacteremia secondary to Escherichia coli. 3. Acute kidney injury, resolved. 4. Dementia, advanced. 5. Parkinson's disease. 6. Pressure ulcer, stage I, present on admission. DISCUSSION AND PLAN: Since the patient has a history of multidrug resistant organisms, we will place him on meropenem and discontinue the Rocephin and gentamicin. Normal saline will be discontinued. The patient has been adequately volume resuscitated. I will put him on a D5 water at 75 mL per hour for the next 24 hours in order to improve his hypernatremia. Vancomycin is no longer indicated as we have a clear source. Stress doses of steroids will be continued. Pulmonary or Critical Care will c ontinue to follow along as he is going to remain in the ICU for the next 24 hours. Once we were off pressors, he can be transitioned to the floor. Palliative Care opinion is very much appreciated. Ul timately, the patient is at the end of his life with end-stage dementia process. We are going to con tinue seeing complications of malnutrition, and progressing dementia moving forward.
[2018-01-20] MEDS: Dextrose 5% in Water 1,000 ML IV SCH (15:12)
[2018-01-20] MEDS: MEROPENEM 1 GM/50 ML 1 GM in Premix Bag 1 BAG IVPB SCH (19:54)
[2018-01-20] MEDS: Atorvastatin Calcium 40 MG TAB PO SCH (20:01)
[2018-01-21] MEDS: Hydrocortisone Sod Succ/PF 100 mg/2 ml Vial IVP SCH ×5 (00:31→23:07)
[2018-01-21] MEDS: MEROPENEM 1 GM/50 ML 1 GM in Premix Bag 1 BAG IVPB SCH ×3 (05:44→19:58)
[2018-01-21] MEDS: Dextrose 5% in Water 1,000 ML IV SCH ×2 (05:44→17:12)
[2018-01-21] MEDS: Levothyroxine Sodium 75 MCG TAB PO SCH (05:45)
[2018-01-21 05:49] LABS: Anion Gap 15 mmol/L (10-20); BUN (Urea Nitrogen) 50 mg/dL (8.4-25.7); Calc. Creatinine Clearance 36 mL/min (70-130); Calcium 7.2 mg/dL (7.8-10.44); Carbon Dioxide 19 mmol/L (23-31); Chloride 115 mmol/L (98-107); Estimated GFR-MDRD 56; Glucose 243 mg/dL (83-110); Potassium 3.5 mmol/L (3.5-5.1); Sodium 145 mmol/L (136-145)
[2018-01-21 06:15] LABS: Band 5 % (5-11); Hemoglobin 9.3 g/dL (14.0-18.0); Hypochromia SLIGHT = 6-15 cells (100X) (0-5/hpf); Lymphocytes 1 % (21-51); MDiff Complete? YES; Mean Corpuscular HGB CONC 32.1 g/dL (32.0-36.0); Mean Corpuscular Hemoglobin 31.1 pg (27.0-31.0); Mean Corpuscular Volume 96.9 fL (78.0-98.0); Monocytes 2 % (0-10); Neutrophil 92 % (42-75); PLT Morphology Comment Appears Adequate; Platelet Count 222 thou/uL (130-400); RBC Distribution Width 13.8 % (11.5-14.5); White Blood Cell (WBC) Count 14.1 thou/uL (4.8-10.8)
[2018-01-21] MEDS: Vasopressin 40 UNIT, Admixture Fee 1 EACH in Sodium Chloride 0.9% 100 ML IV PRN (07:15)
[2018-01-21] MEDS: Ferrous Gluconate 324 MG TAB PO SCH (08:32)
[2018-01-21] MEDS: Folic Acid 1 MG TAB PO SCH (08:33)
[2018-01-21] MEDS: Multivitamin W/ Minerals 1 TAB PO SCH (08:33)
[2018-01-21] MEDS: Calcium Carbonate + Vit D 1 TAB PO SCH ×2 (08:33→21:01)
[2018-01-21] MEDS: Carbidopa/Levodopa 10-100 mg Tablet PO SCH ×3 (08:33→21:01)
[2018-01-21] MEDS: Finasteride 5 MG TAB PO SCH (08:34)
[2018-01-21] MEDS: Famotidine/PF 20 mg/2ml Vial SLOW IVP SCH (08:34)
[2018-01-21] MEDS: Amiodarone 200 MG TAB PO SCH (08:34)
[2018-01-21] MEDS: Heparin 5,000 UNITS/ML VIAL SC SCH ×2 (08:34→21:02)
--- NOTE | 2018-01-21 09:51 | PDOC.PN ---
- Subjective Encounter Start Date: 01/21/18 Encounter Start Time: 09:46 Mr. Morales was seen today in follow-up of UTI with sepsis. He is more alert, but unable to communicate is concerns. He appears comfortable. - Objective Resuscitation Status: Resuscitation Status DNI:No Intubation MAR Reviewed: Yes Vital Signs & Weight: Vital Signs (12 hours) Temp 01/21/18 08:00 99.5 F 01/21/18 04:00 98.5 F 01/21/18 00:00 98.2 F Weight Admit Weight 130 lb Weight 130 lb 1.164 oz Most Recent Monitor Data Heart Rate from ECG 72 NIBP 111/62 NIBP BP-Mean 72 Respiration from ECG 30 SpO2 100 I&O: 01/20/18 01/21/18 01/22/18 06:59 06:59 06:59 Intake Total 4143.6 3152 353.8 Output Total 1620 968 170 Balance 2523.6 2184 183.8 Result Diagrams: 01/21/18 05:24 01/21/18 05:24 Phys Exam - Physical Examination HEENT: PERRLA Respiratory: no wheezing, no rales, no rhonchi, clear to auscultation bilateral Cardiovascular: RRR, no significant murmur, no rub Gastrointestinal: soft, non-tender, positive bowel sounds Musculoskeletal: no edema + contractures of the lower extremities Dx/Plan (1) Sepsis Code(s): A41.9 - SEPSIS, UNSPECIFIED ORGANISM Status: Acute (2) UTI (urinary tract infection) Status: Suspected (3) Parkinson disease Code(s): G20 - PARKINSON'S DISEASE Status: Chronic (4) RACHELLE (acute kidney injury) Code(s): N17.9 - ACUTE KIDNEY FAILURE, UNSPECIFIED Status: Resolved - Plan * Complicated UTI due to indwelling lechuga with sepsis- Blood culture is growing E. Colie which is multi-drug resistant. He has been changed to Meropenem. * Acute renal failure- improved * Sepsis- improving- he is now off pressors * Advanced dementia- stable- he did not do well on the swallowing evaluation- this could be due to weakness - will tube feed over the weekend, and re-assess on Tuesday * Hematuria- ? lechuga trauma- vs. hemorrhagic UTI- will observe
--- NOTE | 2018-01-21 10:53 | EKG ---
Test Reason : SEPSIS Blood Pressure : / mmHG Vent. Rate : 095 BPM Atrial Rate : 110 BPM P-R Int : 000 ms QRS Dur : 144 ms QT Int : 326 ms P-R-T Axes : 000 -49 128 degrees QTc Int : 409 ms Suspect unspecified pacemaker failure Atrial fibrillation with occasional ventricular-paced complexes Left axis deviation Left bundle branch block Abnormal ECG Confirmed by АЛЕКСАНДР BRAVO, AUDREY ([id number]), photography editor ZAIRA WHITEHEAD ([id number]) on 01/21/2018 10:53:05 AM Referred By: MD RAMIREZ Confirmed By:AUDREY FOUNTAIN MD
--- NOTE | 2018-01-21 13:46 | PRG ---
DATE OF SERVICE: 01/21/2018 SUBJECTIVE: Moe Morales remained in the ICU, encephalopathic. He is on 2 pressors. His Levophed is turned off this morning. PHYSICAL EXAMINATION: VITAL SIGNS: Blood pressure is 111/62, pulse is 72, respiratory rate 18, temperature is 99. GENERAL: He is barely responsive, opens his eyes. CHEST: Decreased breath sounds, no wheezing. CARDIAC: Normal S1 and S2. No gallops. ABDOMEN: Soft, no masses. LABORATORY DATA: White count 14,000, H&H 9 and 23. Creatinine 1.2, BUN 50. E. coli sensitive to Zosyn and meropenem. IMPRESSION: 1. Urosepsis. 2. Supraventricular tachycardia. 3. Advanced age. 4. Hypertension. PLAN: Meropenem, which should probably be adequate for his present coverage. Once his pressors are off, he can be transferred out of the ICU. Pulmonary Critical Care will follow while in the ICU.
[2018-01-21] MEDS: Atorvastatin Calcium 40 MG TAB PO SCH (21:01)
[2018-01-22] MEDS: MEROPENEM 1 GM/50 ML 1 GM in Premix Bag 1 BAG IVPB SCH ×3 (04:38→19:54)
[2018-01-22] MEDS: Hydrocortisone Sod Succ/PF 100 mg/2 ml Vial IVP SCH ×4 (06:26→23:33)
[2018-01-22] MEDS: Levothyroxine Sodium 75 MCG TAB PO SCH (06:27)
[2018-01-22] MEDS: Dextrose 5% in Water 1,000 ML IV SCH ×2 (06:27→19:55)
[2018-01-22] MEDS: Multivitamin W/ Minerals 1 TAB PO SCH (08:43)
[2018-01-22] MEDS: Famotidine/PF 20 mg/2ml Vial SLOW IVP SCH (08:43)
[2018-01-22] MEDS: Carbidopa/Levodopa 10-100 mg Tablet PO SCH ×3 (08:43→21:02)
[2018-01-22] MEDS: Amiodarone 200 MG TAB PO SCH (08:44)
[2018-01-22] MEDS: Folic Acid 1 MG TAB PO SCH (08:44)
[2018-01-22] MEDS: Ferrous Gluconate 324 MG TAB PO SCH (08:44)
[2018-01-22] MEDS: Calcium Carbonate + Vit D 1 TAB PO SCH ×2 (08:44→21:02)
[2018-01-22] MEDS: Finasteride 5 MG TAB PO SCH (08:45)
[2018-01-22] MEDS: Heparin 5,000 UNITS/ML VIAL SC SCH ×2 (08:45→21:02)
--- NOTE | 2018-01-22 09:21 | PDOC.PN ---
- Subjective Encounter Start Date: 01/22/18 Encounter Start Time: 09:18 Mr. Morales was seen today in follow-up of UTI with sepsis. He is more alert. He appears a little stronger each day. He is still not able to communicate his needs. - Objective Resuscitation Status: Resuscitation Status DNI:No Intubation MAR Reviewed: Yes Vital Signs & Weight: Vital Signs (12 hours) Temp Pulse Ox 01/22/18 06:18 100 01/22/18 04:00 98 F 01/22/18 00:00 98.5 F Weight Admit Weight 130 lb Weight 130 lb 1.164 oz Most Recent Monitor Data Heart Rate from ECG 66 NIBP 110/60 NIBP BP-Mean 77 Respiration from ECG 18 SpO2 99 I&O: 01/21/18 01/22/18 01/23/18 06:59 06:59 06:59 Intake Total 3152 3743.8 Output Total 968 1023 Balance 2184 2720.8 Result Diagrams: 01/21/18 05:24 01/21/18 05:24 Phys Exam - Physical Examination HEENT: PERRLA Respiratory: no wheezing, no rales, no rhonchi, clear to auscultation bilateral Cardiovascular: RRR, no significant murmur, no rub Gastrointestinal: soft, non-tender, positive bowel sounds Musculoskeletal: no edema Dx/Plan (1) Sepsis Code(s): A41.9 - SEPSIS, UNSPECIFIED ORGANISM Status: Acute (2) UTI (urinary tract infection) Status: Suspected (3) Parkinson disease Code(s): G20 - PARKINSON'S DISEASE Status: Chronic (4) RACHELLE (acute kidney injury) Code(s): N17.9 - ACUTE KIDNEY FAILURE, UNSPECIFIED Status: Resolved - Plan * UTI- continue Meropenem * Acute renal failure- improving * Dysphagia- plan is to re-assess his swallow tomorrow. If he does not do well will need to contact family and discuss * He is stable for transfer out of the ICU * Will check follow-up lab work.
[2018-01-22 10:06] LABS: #Basophils 0.1 thou/uL (0.0-0.2); #Lymphocytes 0.4 thou/uL (1.20-3.40); #Monocytes 0.3 thou/uL (0.11-0.59); #Neutrophils 9.6 thou/uL (1.40-6.50); %Basophils 0.7 % (0.0-1.0); %Eosinophils 0.1 % (0.0-10.0); %Lymphocytes 3.9 % (21.0-51.0); %Neutrophils 92.3 % (42.0-75.0); Hemoglobin 9.6 g/dL (14.0-18.0); Mean Corpuscular HGB CONC 31.1 g/dL (32.0-36.0); Mean Corpuscular Hemoglobin 30.1 pg (27.0-31.0); Mean Corpuscular Volume 96.6 fL (78.0-98.0); Mean Platelet Volume 6.5 fL (7.4-10.4); Platelet Count 193 thou/uL (130-400); RBC Distribution Width 13.9 % (11.5-14.5); Red Blood Cell (RBC) Count 3.19 mill/uL (4.70-6.10); White Blood Cell (WBC) Count 10.4 thou/uL (4.8-10.8)
[2018-01-22 10:26] LABS: Anion Gap 10 mmol/L (10-20); BUN (Urea Nitrogen) 48 mg/dL (8.4-25.7); Calc. Creatinine Clearance 42 mL/min (70-130); Calcium 7.1 mg/dL (7.8-10.44); Carbon Dioxide 23 mmol/L (23-31); Chloride 112 mmol/L (98-107); Estimated GFR-MDRD 68; Glucose 176 mg/dL (83-110); Potassium 3.2 mmol/L (3.5-5.1); Sodium 142 mmol/L (136-145)
--- NOTE | 2018-01-22 11:24 | PRG ---
DATE OF SERVICE: 01/22/2018 SUBJECTIVE: This morning, he is alert, more responsive. He is off all pressors. OBJECTIVE: VITAL SIGNS: Blood pressure 110/60, pulse 66, respirations 18, sats 100%. GENERAL: He is contracted, appears to be in no distress. CHEST: Decreased breath sounds, no wheezing. CARDIAC: Normal S1 and S2, no gallops. ABDOMEN: Soft. IMPRESSION: Urinary tract infection; sepsis syndrome; hypotension, resolved; renal failure; Parkinson's. PLAN: The patient probably can be transferred to [facility]. Continue supportive care. Unfortunately, he is going to need a PEG and he needs to go to a [facility]. We will follow. AUDREY
[2018-01-22] MEDS: Atorvastatin Calcium 40 MG TAB PO SCH (21:02)
[2018-01-23] MEDS: MEROPENEM 1 GM/50 ML 1 GM in Premix Bag 1 BAG IVPB SCH ×3 (04:49→20:24)
[2018-01-23] MEDS: Levothyroxine Sodium 75 MCG TAB PO SCH (06:20)
[2018-01-23] MEDS: Hydrocortisone Sod Succ/PF 100 mg/2 ml Vial IVP SCH ×3 (06:20→18:45)
[2018-01-23] MEDS: Carbidopa/Levodopa 10-100 mg Tablet PO SCH ×3 (09:03→20:25)
[2018-01-23] MEDS: Ferrous Gluconate 324 MG TAB PO SCH (09:04)
[2018-01-23] MEDS: Multivitamin W/ Minerals 1 TAB PO SCH (09:04)
[2018-01-23] MEDS: Famotidine/PF 20 mg/2ml Vial SLOW IVP SCH (09:04)
[2018-01-23] MEDS: Folic Acid 1 MG TAB PO SCH (09:05)
[2018-01-23] MEDS: Finasteride 5 MG TAB PO SCH (09:05)
[2018-01-23] MEDS: Amiodarone 200 MG TAB PO SCH (09:05)
[2018-01-23] MEDS: Calcium Carbonate + Vit D 1 TAB PO SCH ×2 (09:05→20:25)
--- NOTE | 2018-01-23 11:52 | PDOC.PN ---
- Subjective Encounter Start Date: 01/23/18 Encounter Start Time: 11:51 Mr. Morales was seen today in follow-up of UTI and sepsis. He is a bit somnolent today. No complaints voiced by nursing staff. - Objective Resuscitation Status: Resuscitation Status DNI:No Intubation MAR Reviewed: Yes Vital Signs & Weight: Vital Signs (12 hours) Temp Pulse Resp BP Pulse Ox 01/23/18 11:18 97.6 F 63 16 117/65 91 L 01/23/18 07:41 97.4 F L 62 16 147/69 H 94 L Weight Admit Weight 130 lb Weight 130 lb 1.164 oz Most Recent Monitor Data Heart Rate from ECG 70 NIBP 107/56 NIBP BP-Mean 72 Respiration from ECG 20 SpO2 100 I&O: 01/22/18 01/23/18 01/24/18 06:59 06:59 06:59 Intake Total 3743.8 2530 30 Output Total 1023 915 Balance 2720.8 1615 30 Result Diagrams: 01/22/18 09:57 01/22/18 09:57 Phys Exam - Physical Examination HEENT: PERRLA temporal wasting Respiratory: no wheezing, no rales, no rhonchi, clear to auscultation bilateral Cardiovascular: RRR, no significant murmur, no rub Gastrointestinal: soft, non-tender, positive bowel sounds Musculoskeletal: no edema Dx/Plan (1) Sepsis Code(s): A41.9 - SEPSIS, UNSPECIFIED ORGANISM Status: Acute Comment: Complicated UTI from Wilkes Catheter (2) UTI (urinary tract infection) Status: Suspected (3) Parkinson disease Code(s): G20 - PARKINSON'S DISEASE Status: Chronic (4) RACHELLE (acute kidney injury) Code(s): N17.9 - ACUTE KIDNEY FAILURE, UNSPECIFIED Status: Resolved (5) Moderate protein-calorie malnutrition Code(s): E44.0 - MODERATE PROTEIN-CALORIE MALNUTRITION Status: Acute - Plan * UTI Complicated, with MDR E. coli - continue Meropenem * Advanced Parkinson's disease with dysphagia- I spoke with the patient's son, and he is aware of his condition , and prognosis. He tells me the patient would not want a PEG tube, even if he has trouble swallowing, and at risk for aspiration. Discussed with speech therapy- he will be placed on Pleasure feeds, will await diet consistency recommendations * Moderate Protein Calorie Malnutrition- pleasure feeds * Prognosis is guarded, he would be appropriate for Hospice care.
[2018-01-23] MEDS: Dextrose 5% in Water 1,000 ML IV SCH (12:14)
[2018-01-23] MEDS: Heparin 5,000 UNITS/ML VIAL SC SCH ×2 (12:15→20:25)
--- NOTE | 2018-01-23 13:46 | PRG ---
DATE OF SERVICE: 01/23/2018 SERVICE: Pulmonary Medicine INTERVAL HISTORY: The patient is doing fine from a respiratory standpoint. He is breathing comforta juancarlos. There has been no interval change to his condition. Nursing reports overnight events. He is n ot able to provide any interval history secondary to his advanced cognitive impairment. PHYSICAL EXAMINATION: VITAL SIGNS: Afebrile, pulse 63, blood pressure 117/65, respirations 16, saturation 94% on room air. GENERAL: The patient is awake, alert, no apparent distress. LUNGS: Decent air entry. Rhonchi are present. There is no prolonged expiratory phase or wheezing a ppreciated. HEART: Normal rate, regular. ABDOMEN: Soft, nontender, nondistended. Bowel sounds are positive. MUSCULOSKELETAL: No cyanosis or clubbing. There is no pitting in the bilateral lower extremities. He is cachectic. NEUROLOGIC: Grossly nonfocal. LABORATORIES: Blood cultures are growing E. coli in 2 out of 2 that have a fairly impressive resista nce profile. Urine culture is growing multiple organisms once again. ASSESSMENT: 1. Septic shock, resolved. 2. Bacteremia secondary to Escherichia coli. 3. Acute kidney injury, resolved. 4. Dementia, advanced. 5. Parkinson's disease. 6. Pressure ulcer, stage I, present on admission. DISCUSSION AND PLAN: The patient has cleared his infection profile. At this point, he has no furthe r requirements for inpatient Pulmonary or Critical Care opinion. As such, I will sign off. Please c all with additional questions or concerns moving forward. Tube feeds have been initiated, so his IV fluids will be interrupted.
[2018-01-23] MEDS: Atorvastatin Calcium 40 MG TAB PO SCH (20:24)
[2018-01-24] MEDS: Hydrocortisone Sod Succ/PF 100 mg/2 ml Vial IVP SCH ×3 (00:08→11:49)
[2018-01-24] MEDS: MEROPENEM 1 GM/50 ML 1 GM in Premix Bag 1 BAG IVPB SCH ×2 (04:14→11:49)
[2018-01-24] MEDS: Levothyroxine Sodium 75 MCG TAB PO SCH (05:52)
[2018-01-24] MEDS ORDERED: Alendronate Sodium 70 mg Tablet PO SCH (06:00)
[2018-01-24] MEDS: Ferrous Gluconate 324 MG TAB PO SCH (08:43)
[2018-01-24] MEDS: Calcium Carbonate + Vit D 1 TAB PO SCH (08:43)
[2018-01-24] MEDS: Folic Acid 1 MG TAB PO SCH (08:44)
[2018-01-24] MEDS: Carbidopa/Levodopa 10-100 mg Tablet PO SCH ×2 (08:44→16:12)
[2018-01-24] MEDS: Amiodarone 200 MG TAB PO SCH (08:44)
[2018-01-24] MEDS: Multivitamin W/ Minerals 1 TAB PO SCH (08:44)
[2018-01-24] MEDS: Famotidine/PF 20 mg/2ml Vial SLOW IVP SCH (08:45)
[2018-01-24] MEDS: Finasteride 5 MG TAB PO SCH (08:48)
[2018-01-24] MEDS: Heparin 5,000 UNITS/ML VIAL SC SCH (08:49)
[2018-01-24 16:51] VITALS: BP 130/52
[2018-01-24 18:48] VITALS: TEMP 98
--- NOTE | 2018-01-24 23:39 | DIS ---
DATE OF ADMISSION: 01/19/2018 DATE OF DISCHARGE: 01/24/2018 DISCHARGE DISPOSITION: alf facility with hospice. DISCHARGE DIAGNOSES: 1. Urinary tract infection secondary to Escherichia coli with multidrug resistance. 2. Advanced dementia. 3. Hypertension. 4. Chronic atrial fibrillation. 5. Sepsis secondary to urinary tract infection. Please note that the urinary tract infection was co mplicated urinary tract infection secondary to an indwelling Wilkes catheter. 6. Depression. 7. Osteoporosis. DISCHARGE MEDICATIONS: The patient will continue on his previous medicines including Proscar 5 mg d aily, aspirin 81 mg daily, Aldactone 25 mg daily, docusate 1 tablet twice a day, Seroquel 15 mg in th e a.m. and 15 mg in the p.m., multivitamin once a day, levothyroxine 75 mcg daily, Lasix 40 mg twice a day, folic acid 1 mg daily, fergon 324 mg daily, digoxin 0.125 mg daily, carbidopa/levodopa 10/100 one tablet t.i.d., calcium plus vitamin D twice a day, Lipitor 40 mg at bedtime, amiodarone 200 mg da trung, alfuzosin 10 mg daily, risedronate 35 mg once a week. CODE STATUS: DNR. ALLERGIES: No known drug allergies. HOSPITAL COURSE: Mr. Morales is a pleasant 87-year-old gentleman who was sent over from the [facility] for generalized weakness and fever. When he was admitted, he was found to have a temperature of 10 2.7. He was hypotensive and was in acute renal failure. He was admitted and started on IV fluid res uscitation. Urine and blood cultures were obtained and urine cultures grew multiple organisms includ ing Pseudomonas, E. coli and Providencia. Blood cultures 2/2 grew E. coli, which was a multidrug res istant strain. He was treated with IV meropenem during the course of his hospital stay. The patient again advanced dementia and was noncommunicative. He also had severe dysphagia likely as a result o f the dementia as well as generalized deconditioning from his illness. This was discussed with the deborah wooten's son and the decision was made to place the patient in hospice care as this is likely to beco me a recurrent scene with regards to recurrent urinary tract infection and dysphagia. Therefore, on 01/24/2018, the patient was discharged back to the nursing facility; however, at this time under hosp ice care.
== END 2018-01-24 17:30 | disposition critical access hospital (66) | DRG 698 ==
LOC: ERS 20:31 → CCU 23:00 → T4-A 01-22 11:23
PROVIDERS: ADMIT Internal Medicine; ATTEND Internal Medicine
DX: T83.511A Infection and inflammatory reaction due to indwelling urethral catheter, initial encounter (principal); A41.9 Sepsis, unspecified organism; R65.21 Severe sepsis with septic shock; N17.9 Acute kidney failure, unspecified; I24.8 Other forms of acute ischemic heart disease; M62.82 Rhabdomyolysis; E44.0 Moderate protein-calorie malnutrition; E87.0 Hyperosmolality and hypernatremia; I47.1 Supraventricular tachycardia; B96.20 Unspecified Escherichia coli [E. coli] as the cause of diseases classified elsewhere; I10 Essential (primary) hypertension; I48.2 Chronic atrial fibrillation; F32.9 Major depressive disorder, single episode, unspecified; M81.0 Age-related osteoporosis without current pathological fracture; Z66 Do not resuscitate; Z79.82 Long term (current) use of aspirin; E78.5 Hyperlipidemia, unspecified; I25.10 Atherosclerotic heart disease of native coronary artery without angina pectoris; Z85.51 Personal history of malignant neoplasm of bladder; Z95.1 Presence of aortocoronary bypass graft; G20 Parkinson's disease; F02.80 Dementia in other diseases classified elsewhere, unspecified severity, without behavioral disturbance, psychotic disturbance, mood disturbance, and anxiety; R13.10 Dysphagia, unspecified; L89.141 Pressure ulcer of left lower back, stage 1
CPT/HCPCS: 36415; 36416; 36556; 71045; 80048; 80053; 80162; 81003; 81015; 82533; 82553; 83605; 83880; 84443; 84484; 85025; 87040; 87077; 87086; 87149; 87186; 93005; 96361; 96365; 96366; 96367; A4216; G8978-GP-CN; G8979-GP-CN; G8980-GP-CN; G8987-GO-CN; G8988-GO-CN; G8989-GO-CN; G8996-GN-CN; G8997-GN-CL; G8997-GN-CM; J0696; J1580; J1644; J1720; J2185; J2543; J3370; J3411; J7050; S0028